=== PATIENT | female | born 1955 | race Caucasian/White ===

== ENCOUNTER 2022-01-11 14:30 | Emergency (ER) | payer MEDICARE, SELFPAY ==
[2022-01-11 15:43] VITALS: BP 125/62; PULSE 62; RESP 19; TEMP 36.6; O2SAT 98; BMI 24.2
--- NOTE | 2022-01-11 17:27 | ED.GENADULT ---
HPI - General Adult General Chief complaint: General Medical Stated complaint: Port needs to be flushed Time Seen by Provider: 01/11/22 16:50 Source: patient Mode of arrival: ambulatory Limitations: no limitations History of Present Illness HPI narrative: Patient lives in [place] came here to see her mother is going to stay here for some time has a port and she gets IV G every 4 weeks as needed comes here as she want site to be flushed and check her platelet levels no other active complaints as such Related Data Allergies Allergy/AdvReac Type Severity Reaction Status Date / Time cephalexin [From KEFLEX] Allergy Unknown UNKNOWN Unverified 06/20/20 19:06 diazepam [From VALIUM] Allergy Unknown UNKNOWN Unverified 06/20/20 19:06 erythromycin base Allergy Unknown ANAPHYLAXIS Unverified 06/20/20 19:06 [ERYTHROMYCIN BASE] meperidine [From DEMEROL] Allergy Unknown UNKNOWN Unverified 06/20/20 19:06 morphine [MORPHINE] Allergy Unknown KIDNEY Unverified 06/20/20 19:06 PROBLEM pantoprazole [From PROTONIX] Allergy Unknown ITCHING Unverified 06/20/20 19:06 paroxetine [From PAXIL] Allergy Unknown ITCHING Unverified 06/20/20 19:06 promethazine [From PHENERGAN] Allergy Unknown ANAPHYLAXIS Unverified 06/20/20 19:06 Review of Systems Review of Systems: Yes all other systems are reviewed and are negative PMFSH Past Medical History Medical History COPD (chronic obstructive pulmonary disease) CVA (cerebral vascular accident) Diabetes type 1, controlled HTN (hypertension) Lupus Myocardial infarct Social History Social History Patient Tobacco Use Status: Never used Tobacco Use of substances other than those prescribed or required for medical reasons: No Advance Directives: No Advance Directives Information Provided: No Patient : No Physical Exam ED Vital Signs: Vital Signs - 24 hr 01/11/22 15:43 01/11/22 18:42 Temperature 98 F 98.0 F Pulse Rate 62 56 Respiratory Rate 19 18 Blood Pressure 125/62 135/70 Pulse Oximetry 98 98 BMI result Body Mass Index 24.2 Appearance: Alert. Oriented X3. No acute distress. ENT: Pharynx normal. Oral Mucosa moist Neck: Normal inspection. Neck supple. CVS: Normal heart rate and rhythm. Pulses normal. Respiratory: No respiratory distress. Equal air entry bilateral, Abdomen: Soft and nontender. Bowel sounds are present, no mass palpable, Skin: Skin warm and dry. Normal skin color. Normal skin turgor. Extremities: No lower extremity edema. No calf tenderness Neuro: Oriented X 3. Medical Decision Making Lab Data Lab results reviewed: Yes I reviewed the patient's lab results. Result diagrams: 01/11/22 18:24 01/11/22 18:24 Labs: Lab Results 01/11/22 01/11/22 Range/Units 18:24 18:24 WBC 5.6 (4.8-10.8) X10*3/uL RBC 4.82 (4.20-5.50) X10*6/uL Hgb 14.1 (12.0-16.0) g/dl Hct 41.8 (37.0-47.0) % MCV 86.7 (80.0-98.0) fL MCH 29.3 (27.0-33.0) pg MCHC 33.7 (31.0-35.0) g/dl RDW 12.4 (11.0-16.0) % Plt Count 46 L (160-400) X10*3/uL MPV 13.4 H (9.4-12.3) fL Immature Gran % (Auto) 0.2 (0.0-0.4) % Neut % (Auto) 46.6 (45-73) % Lymph % (Auto) 43.6 H (20-40) % [place] % (Auto) 7.7 (2-11) % Eos % (Auto) 1.4 (0-4) % Baso % (Auto) 0.5 (0-2) % Lymph # (Auto) 2.5 (1.2-4.9) X10*3/uL [place] # (Auto) 0.4 (0.1-1.2) X10*3/uL Eos # (Auto) 0.1 (0.0-0.4) X10*3/uL Baso # (Auto) 0.0 (0.0-0.2) X10*3/uL Abs Immat Gran (auto) 0.01 (0.00-0.03) X10*3/uL Absolute Neuts (auto) 2.6 (2.0-8.3) x10*3/uL Absolute Nucleated RBC 0.000 (0.0-0.012) X10*3/uL Nucleated RBC % (auto) 0.0 (0.0-0.2) /100WBC Smear Tech's Comments VERIFIED Sodium 140 (135-145) mmol/L Potassium 3.8 (3.3-5.1) mmol/L Chloride 106 (96-108) mmol/L Carbon Dioxide 28 (22-29) mmol/L Anion Gap 10 L (12-20) BUN 11 (9-16) mg/dL Creatinine 0.72 (0.5-1.4) mg/dL Estim Creat Clear Calc 82.5 Estimated GFR > 60 Random Glucose 121 H (60-115) mg/dL Calcium 8.8 (8.4-10.2) mg/dL Total Bilirubin 0.3 (0.0-1.0) mg/dL AST 25 (5-31) U/L ALT 31 (0-31) U/L Alkaline Phosphatase 86 (39-117) U/L Total Protein 6.1 L (6.5-8.0) g/dL Albumin 4.0 (3.5-5.0) g/dL Discharge Plan Discharge Clinical Impression: Thrombocytopenia Patient Disposition: Home, Self-Care Instructions: Thrombocytopenia (ED) Additional Instructions: Care as advised Follow up with PCP
--- NOTE | 2022-01-11 18:29 | PC.NURSE ---
Right chest port accessed, +blood return. labs drawn/sent
[2022-01-11 18:42] VITALS: BP 135/70; PULSE 56; RESP 18; TEMP 36.7; O2SAT 98
[2022-01-11 18:42] LABS: Hemoglobin 14.1 g/dl (12.0-16.0); Monocytes Absolute Auto 0.4 X10*3/uL (0.1-1.2); Red Cell Distribution Width 12.4 % (11.0-16.0); SCAN SMEAR FLAG 1
[2022-01-11 18:44] LABS: Basophils Percent Auto 0.5 % (0-2); Eosinophils Absolute Auto 0.1 X10*3/uL (0.0-0.4); Eosinophils Percent Auto 1.4 % (0-4); Hematocrit 41.8 % (37.0-47.0); Imm Gran Abs Auto 0.01 X10*3/uL (0.00-0.03); Imm Gran Pct Auto 0.2 % (0.0-0.4); Lymphocytes Absolute Auto 2.5 X10*3/uL (1.2-4.9); Lymphocytes Percent Auto 43.6 % (20-40); MANUAL DIFF FLAG SCAN; Mean Corpuscular HGB Conc 33.7 g/dl (31.0-35.0); Mean Corpuscular Hemoglobin 29.3 pg (27.0-33.0); Mean Corpuscular Volume 86.7 fL (80.0-98.0); Mean Platelet Volume 13.4 fL (9.4-12.3); Monocytes Percent Auto 7.7 % (2-11); Neutrophils Absolute Auto 2.6 x10*3/uL (2.0-8.3); Neutrophils Percent Auto 46.6 % (45-73); Red Blood Count 4.82 X10*6/uL (4.20-5.50); White Blood Count 5.6 X10*3/uL (4.8-10.8)
[2022-01-11 18:45] LABS: PLT ABN DIST 1; Platelet Count 46 X10*3/uL (160-400)
[2022-01-11 18:51] LABS: Alanine Aminotransferase 31 U/L (0-31); Alkaline Phosphatase 86 U/L (39-117); Anion Gap 10 (12-20); Aspartate Amino Transferase 25 U/L (5-31); Bilirubin Total 0.3 mg/dL (0.0-1.0); Blood Urea Nitrogen 11 mg/dL (9-16); Calcium 8.8 mg/dL (8.4-10.2); Carbon Dioxide 28 mmol/L (22-29); Chloride 106 mmol/L (96-108); Creatinine Clr Calc Pharmacy 82.5; Estimated Glomerular Filt Rate > 60; Glucose Random 121 mg/dL (60-115); Potassium 3.8 mmol/L (3.3-5.1); Sodium 140 mmol/L (135-145); Total Protein 6.1 g/dL (6.5-8.0)
[2022-01-11 19:09] LABS: SLIDE REVIEW VERIFIED
[2022-01-11 20:31] VITALS: BP 110/77; PULSE 56; RESP 18; TEMP 36.8; O2SAT 94
== END 2022-01-11 21:03 | disposition home or self-care (01) ==
PROVIDERS: Emergency Provider Internal Medicine
DX: D69.49 Other primary thrombocytopenia (principal); Z79.899 Other long term (current) drug therapy
CPT/HCPCS: 36415; 80053; 85025; 96365; 99284

== ENCOUNTER 2022-01-24 20:46 | Inpatient (IN) | payer MEDICARE, SELFPAY ==
--- NOTE | ~2022-01-24 | US_ITS ---
EXAMINATION: US VENOUS WITH DOPPLER UPPER EXTREMITY, LEFT CLINICAL INFORMATION: Left arm swelling COMPARISON: None TECHNIQUE: Ultrasound of the upper extremity is performed using compression sonography and color and pulse Doppler flow with assessment of augmentation of flow. There is also imaging and Doppler assessment of the jugular and subclavian veins. Spectral analysis with color-flow imaging is performed. FINDINGS: Respiratory variation, normal compression, and augmented flow are noted throughout the upper extremity including the axillary, brachial, cubital, and radial and ulnar veins. There is normal flow in the internal jugular and subclavian veins. There is no visible deep or superficial thrombophlebitis. There is a subcentimeter simple appearing fluid collection left axilla, likely a tiny seroma US/US venous duplex UE LT IMPRESSION: No DVT demonstrated in the left upper extremity
--- NOTE | ~2022-01-24 | XR_ITS ---
EXAMINATION: XR CHEST CLINICAL INFORMATION: Shortness of breath. COMPARISON: None. TECHNIQUE: AP view of the chest was obtained. FINDINGS: Coronary stents and right-sided CT compatible chest port terminating at the level of the cavoatrial junction. Otherwise, normal appearance of the cardiomediastinal silhouette. Linear-like opacities laterally in the left lower lobe, otherwise clear lungs. Mild blunting of the left costophrenic angle which could represent subpleural thickening or trace amount of pleural fluid. No pneumothorax. No acute osseous abnormalities. Left axillary surgical clips. XR/XR chest 1V IMPRESSION: Linear-like opacities in the left lower lobe are in favor to represent subsegmental atelectasis or scarring. No dense consolidation, significant pleural effusion or pneumothorax.
[2022-01-24 20:57] VITALS: BP 132/64; PULSE 100; RESP 20; TEMP 37.6; O2SAT 95; BMI 25.0
[2022-01-24 21:15] LABS: Eosinophils Percent Auto 0.1 % (0-4); Monocytes Absolute Auto 0.6 X10*3/uL (0.1-1.2); SCAN SMEAR FLAG 1
[2022-01-24 21:17] LABS: Basophils Percent Auto 0.1 % (0-2); Hemoglobin 14.1 g/dl (12.0-16.0); Imm Gran Abs Auto 0.06 X10*3/uL (0.00-0.03); Imm Gran Pct Auto 0.4 % (0.0-0.4); Lymphocytes Absolute Auto 1.6 X10*3/uL (1.2-4.9); Lymphocytes Percent Auto 11.7 % (20-40); MANUAL DIFF FLAG SCAN; Mean Corpuscular HGB Conc 33.6 g/dl (31.0-35.0); Mean Corpuscular Hemoglobin 29.2 pg (27.0-33.0); Monocytes Percent Auto 4.4 % (2-11); Neutrophils Absolute Auto 11.6 x10*3/uL (2.0-8.3); Neutrophils Percent Auto 83.3 % (45-73); Red Blood Count 4.83 X10*6/uL (4.20-5.50); Red Cell Distribution Width 12.6 % (11.0-16.0); White Blood Count 13.9 X10*3/uL (4.8-10.8)
[2022-01-24 21:20] LABS: PLT ABN DIST 1
--- NOTE | 2022-01-24 21:23 | ED_ITS ---
HPI - Extremity Problem General Chief complaint: Extremity Problem Stated complaint: cellulitis? Time Seen by Provider: 01/24/22 21:17 History of Present Illness HPI Narrative: Patient is a 66-year-old female presented today with having left upper extremity swelling redness pain. Low-grade fever. Patient has a history of breast cancer. History of lupus. History of multiple MIs in the past. History of COPD. Currently on prednisone. Has multiple history of cellulitis in the past. Complaining of redness to the upper extremity on the left. Getting worse. No chest pain or shortness of breath no diaphoresis. Patient from home. No coughing no congestion or upper respiratory symptoms patient immunized for COVID. Their symptoms started today per Related Data Allergies Allergy/AdvReac Type Severity Reaction Status Date / Time cephalexin [From KEFLEX] Allergy Unknown UNKNOWN Unverified 06/20/20 19:06 diazepam [From VALIUM] Allergy Unknown UNKNOWN Unverified 06/20/20 19:06 erythromycin base Allergy Unknown ANAPHYLAXIS Unverified 06/20/20 19:06 [ERYTHROMYCIN BASE] meperidine [From DEMEROL] Allergy Unknown UNKNOWN Unverified 06/20/20 19:06 morphine [MORPHINE] Allergy Unknown KIDNEY Unverified 06/20/20 19:06 PROBLEM pantoprazole [From PROTONIX] Allergy Unknown ITCHING Unverified 06/20/20 19:06 paroxetine [From PAXIL] Allergy Unknown ITCHING Unverified 06/20/20 19:06 promethazine [From PHENERGAN] Allergy Unknown ANAPHYLAXIS Unverified 06/20/20 19:06 Review of Systems Review of Systems: Positive pain to the left upper arm. Positive swelling. [facility] Past Medical History Attestation statement: The following information was validated with the patient. Medical History COPD (chronic obstructive pulmonary disease) CVA (cerebral vascular accident) Diabetes type 1, controlled HTN (hypertension) Lupus Myocardial infarct Social History Social History Patient Tobacco Use Status: Never used Tobacco Advance Directives: No Advance Directives Information Provided: Yes Physical Exam Vital Signs: Vital Signs: Last Vital Signs Temp 99.6 F 01/24/22 20:57 Pulse 100 01/24/22 20:57 Resp 20 01/24/22 20:57 BP 132/64 01/24/22 20:57 Pulse Ox 95 01/24/22 20:57 BMI result Body Mass Index 25.0 Appearance: Alert. Oriented X3. No acute distress. Eyes: Pupils equal, round and reactive to light. ENT: Pharynx normal. Neck: Normal inspection. Neck supple. No lymph nodes noted. No crepitus CVS: Normal heart rate and rhythm. Pulses normal. Normal S1 and S2 Respiratory: No respiratory distress. Breath sounds normal. No Wheezing. No rales Abdomen: Soft and nontender. No rigidity. No distention. good BS x4 Skin: Positive redness in the left upper extremity. Warm to touch. 2+ pitting edema noted. Redness circumferential over the forearm migrating to the arm. Extremities: No lower extremity edema. Neurovascular intact to all extremities. No Lacerations. See above for left arm rash. Sensation intact. Movement over the fingers intact. Capillary refill less than 2 seconds. Neuro: Oriented X 3. No motor deficit. No sensory deficit. Moving all extermities. No slurred speech NIH Stroke Scale Internal: Initial- Upon Arrival MDM - Extremity (Nontraumatic) MDM Narrative Medical decision making narrative: Positive cellulitis to the left upper extremity. Doppler ultrasound of the upper extremity were negative for DVT. Cultures obtained lactate is less than 1. No evidence for severe sepsis. Patient's white count was in the teens. Antibiotics including Levaquin and vancomycin were given. Patient to be admitted for further evaluation and close observation as patient is on prednisone has a history of lupus history of cancer. In guarded condition awaiting missions Lab Data Attestation: I reviewed the patient's lab results. Result diagrams: 01/24/22 21:07 01/24/22 21:07 Labs: Lab Results 01/24/22 01/24/22 01/24/22 Range/Units 21:07 21:07 21:07 WBC 13.9 H (4.8-10.8) X10*3/uL RBC 4.83 (4.20-5.50) X10*6/uL Hgb 14.1 (12.0-16.0) g/dl Hct 42.0 (37.0-47.0) % MCV 87.0 (80.0-98.0) fL MCH 29.2 (27.0-33.0) pg MCHC 33.6 (31.0-35.0) g/dl RDW 12.6 (11.0-16.0) % Plt Count 25 L D (160-400) X10*3/uL MPV Not Reportable Immature Gran % (Auto) 0.4 (0.0-0.4) % Neut % (Auto) 83.3 H (45-73) % Lymph % (Auto) 11.7 L (20-40) % [place] % (Auto) 4.4 (2-11) % Eos % (Auto) 0.1 (0-4) % Baso % (Auto) 0.1 (0-2) % Lymph # (Auto) 1.6 (1.2-4.9) X10*3/uL [place] # (Auto) 0.6 (0.1-1.2) X10*3/uL Eos # (Auto) 0.0 (0.0-0.4) X10*3/uL Baso # (Auto) 0.0 (0.0-0.2) X10*3/uL Abs Immat Gran (auto) 0.06 H (0.00-0.03) X10*3/uL Absolute Neuts (auto) 11.6 H (2.0-8.3) x10*3/uL Absolute Nucleated RBC 0.000 (0.0-0.012) X10*3/uL Nucleated RBC % (auto) 0.0 (0.0-0.2) /100WBC Smear Tech's Comments VERIFIED Sodium 139 (135-145) mmol/L Potassium 3.8 (3.3-5.1) mmol/L Chloride 103 (96-108) mmol/L Carbon Dioxide 30 H (22-29) mmol/L Anion Gap 10 L (12-20) BUN 12 (9-16) mg/dL Creatinine 1.00 (0.5-1.4) mg/dL Estim Creat Clear Calc 57.3 Estimated GFR 56 Random Glucose 161 H (60-115) mg/dL Lactic Acid 0.9 (0.5-2.0) mmol/L Calcium 9.5 D (8.4-10.2) mg/dL Total Bilirubin 0.7 (0.0-1.0) mg/dL AST 28 (5-31) U/L ALT 29 (0-31) U/L Alkaline Phosphatase 83 (39-117) U/L Total Protein 6.6 (6.5-8.0) g/dL Albumin 4.2 (3.5-5.0) g/dL COVID-19 (IVÁN) (Negative) COVID-19 Clin Com 01/24/22 Range/Units 22:05 WBC (4.8-10.8) X10*3/uL RBC (4.20-5.50) X10*6/uL Hgb (12.0-16.0) g/dl Hct (37.0-47.0) % MCV (80.0-98.0) fL MCH (27.0-33.0) pg MCHC (31.0-35.0) g/dl RDW (11.0-16.0) % Plt Count (160-400) X10*3/uL MPV Immature Gran % (Auto) (0.0-0.4) % Neut % (Auto) (45-73) % Lymph % (Auto) (20-40) % [place] % (Auto) (2-11) % Eos % (Auto) (0-4) % Baso % (Auto) (0-2) % Lymph # (Auto) (1.2-4.9) X10*3/uL [place] # (Auto) (0.1-1.2) X10*3/uL Eos # (Auto) (0.0-0.4) X10*3/uL Baso # (Auto) (0.0-0.2) X10*3/uL Abs Immat Gran (auto) (0.00-0.03) X10*3/uL Absolute Neuts (auto) (2.0-8.3) x10*3/uL Absolute Nucleated RBC (0.0-0.012) X10*3/uL Nucleated RBC % (auto) (0.0-0.2) /100WBC Smear Tech's Comments Sodium (135-145) mmol/L Potassium (3.3-5.1) mmol/L Chloride (96-108) mmol/L Carbon Dioxide (22-29) mmol/L Anion Gap (12-20) BUN (9-16) mg/dL Creatinine (0.5-1.4) mg/dL Estim Creat Clear Calc Estimated GFR Random Glucose (60-115) mg/dL Lactic Acid (0.5-2.0) mmol/L Calcium (8.4-10.2) mg/dL Total Bilirubin (0.0-1.0) mg/dL AST (5-31) U/L ALT (0-31) U/L Alkaline Phosphatase (39-117) U/L Total Protein (6.5-8.0) g/dL Albumin (3.5-5.0) g/dL COVID-19 (IVÁN) Negative (Negative) COVID-19 Clin Com See Note Discharge Plan Discharge Clinical Impression: Cellulitis Patient Disposition: Admitted As Inpatient
[2022-01-24 21:25] LABS: Lactic Acid 0.9 mmol/L (0.5-2.0)
[2022-01-24 21:30] LABS: Alanine Aminotransferase 29 U/L (0-31); Albumin Level 4.2 g/dL (3.5-5.0); Alkaline Phosphatase 83 U/L (39-117); Anion Gap 10 (12-20); Aspartate Amino Transferase 28 U/L (5-31); Bilirubin Total 0.7 mg/dL (0.0-1.0); Blood Urea Nitrogen 12 mg/dL (9-16); Calcium 9.5 mg/dL (8.4-10.2); Carbon Dioxide 30 mmol/L (22-29); Chloride 103 mmol/L (96-108); Creatinine Clr Calc Pharmacy 57.3; Estimated Glomerular Filt Rate 56; Glucose Random 161 mg/dL (60-115); Potassium 3.8 mmol/L (3.3-5.1); Sodium 139 mmol/L (135-145); Total Protein 6.6 g/dL (6.5-8.0)
[2022-01-24] MEDS: levoFLOXacin/D5W 500 MG/100 ML PIGGYBACK 100 MG IV (21:42)
[2022-01-24] MEDS: vancomycin HCL 1,000 MG in 0.9 % Sodium Chloride 250 ML 270 MG IV (21:44)
[2022-01-24 22:13] LABS: Platelet Count 25 X10*3/uL (160-400); SLIDE REVIEW VERIFIED
[2022-01-24 22:37] LABS: COVID-19 Test Negative (Negative)
[2022-01-24] MEDS: Acetaminophen 325 MG TABLET 975 MG PO (22:57)
[2022-01-24] MEDS: Enoxaparin Sodium 40 MG/0.4 ML SYRINGE SUBCUT (22:57)
[2022-01-24] MEDS: ondansetron HCL 4 MG/2 ML VIAL IVPUSH (22:58)
[2022-01-24] MEDS: 0.9 % Sodium Chloride 1,000 ML 999 ML IV (23:06)
[2022-01-24] MEDS: Doxycycline Hyclate 100 MG in 0.9 % Sodium Chloride 250 ML 166.67 MG IV (23:29)
--- NOTE | 2022-01-24 23:49 | PM.IMHP ---
History of Present Illness Date of Service: 01/24/22 Chief Complaint: Cellulitis See 6-year-old female with past medical history of COPD, CVA, diabetes, HTN, lupus, breast cancer status post left mastectomy presents to the hospital with complaints of left upper extremity cellulitis. Patient has recurrent cellulitis of the same arm due to lymphadenopathy in the setting of history of mastectomy. Patient reports that about 2 hours prior to presentation she developed significant swelling, redness, and pain in her left arm. Patient reports that she has recurrent episodes like this before that become extensive very fast. Patient reports a fever of 101 at home, has chills, denies any chest pain, no abdominal pain, no nausea or vomiting, no shortness of breath, no cough, no increased sputum production. No diarrhea constipation, no urinary symptoms lower extremity edema. On arrival to the ED patient has a temp of 99.6 degrees, other vitals normal. Labs are significant for WBC of 13.9, otherwise unremarkable Review of Systems Review of Systems: Yes all other systems are reviewed and are negative [facility] Medical History (Updated 01/25/22 @ 06:11 by Reba Dominique MD) COPD (chronic obstructive pulmonary disease) CVA (cerebral vascular accident) Diabetes type 1, controlled History of avascular necrosis of capital femoral epiphysis HTN (hypertension) Lupus Myocardial infarct Family History (Updated 01/25/22 @ 06:10 by Reba Dominique MD) Other No family history of coronary artery disease Surgical History (Updated 01/25/22 @ 06:11 by Reba Dominique MD) H/O bilateral hip replacements H/O left mastectomy H/O: hysterectomy History of appendectomy History of cholecystectomy Social History Household Members: Spouse Housing: Other Housing Other:: mobile home Do you presently have visiting nurse or other home services: No Patient Tobacco Use Status: Never used Tobacco Second Hand Smoke Exposure: No Use of substances other than those prescribed or required for medical reasons: No Currently Displaying Signs/Symptoms of Drug Intoxication Withdrawal: No Any prior treatment program specific to substance use: No Have you been hit, kicked, punched, or otherwise hurt by someone within the past year? If so, by whom?: No Do you feel safe in your current relationship?: Yes Is there a partner from a previous relationship who is making you feel unsafe now?: No Are you made to feel afraid or neglected: No Advance Directives: No Advance Directives Information Provided: Yes Advance Directives on File: Yes Do you have thoughts of harming others: None Recently lost weight without trying: Unsure Eating poorly because of decreased appetite: No Nutrition Risks: Acute nausea or vomiting x1 week Patient : No : No Poor oral hygiene: No Meds Allergies Allergy/AdvReac Type Severity Reaction Status Date / Time cephalexin [From KEFLEX] Allergy Unknown UNKNOWN Unverified 06/20/20 19:06 diazepam [From VALIUM] Allergy Unknown UNKNOWN Unverified 06/20/20 19:06 erythromycin base Allergy Unknown ANAPHYLAXIS Unverified 06/20/20 19:06 [ERYTHROMYCIN BASE] meperidine [From DEMEROL] Allergy Unknown UNKNOWN Unverified 06/20/20 19:06 morphine [MORPHINE] Allergy Unknown KIDNEY Unverified 06/20/20 19:06 PROBLEM pantoprazole [From PROTONIX] Allergy Unknown ITCHING Unverified 06/20/20 19:06 paroxetine [From PAXIL] Allergy Unknown ITCHING Unverified 06/20/20 19:06 promethazine [From PHENERGAN] Allergy Unknown ANAPHYLAXIS Unverified 06/20/20 19:06 Active Medications: Current Medications Acetaminophen (Acetaminophen 325 Mg Tablet) 650 mg PO Q6H PRN PRN Reason: Pain, Mild (Pain Scale 1-3) Docusate Sodium (Docusate Sodium 100 Mg Capsule) 100 mg PO DAILY PRN PRN Reason: Constipation Enoxaparin Sodium (Enoxaparin Sodium 40 Mg/0.4 Ml Syringe) 40 mg SUBCUT Q24H [place] Last Admin: 01/24/22 22:57 Dose: 40 mg Documented by: Diphenhydramine HCl 25 mg/ (Sodium Chloride) 50.5 mls @ 200 mls/hr IV ONCE [place] Doxycycline Hyclate 100 mg/ (Sodium Chloride) 250 mls @ 166.67 mls/hr IV Q12H [place] Last Admin: 01/24/22 23:29 Dose: 166.67 mls/hr Documented by: Ondansetron HCl (Ondansetron Hcl 4 Mg/2 Ml Vial) 4 mg IVPUSH Q8H PRN PRN Reason: Nausea and Vomiting Last Admin: 01/24/22 22:58 Dose: 4 mg Documented by: Pharmacy Consult (Consult Rx Perform Med Rec) 1 each MISCELLANE ONCE PRN PRN Reason: Consult order Sodium Chloride (0.9 % Sodium Chloride Flush 3 Ml Syringe) 3 ml IVFLUSH QSHIFT [place] Physical Exam Vital Signs and Narrative: Vital Signs: Last Vital Signs Temp 99.6 F 01/24/22 20:57 Pulse 100 01/24/22 20:57 Resp 20 01/24/22 20:57 BP 132/64 01/24/22 20:57 Pulse Ox 95 01/24/22 20:57 BMI result Body Mass Index 25.0 Const: General: cooperative and no acute distress Orientation/consciousness: patient oriented x3 Eyes: General: appearance normal, both eyes and all related structures Pupils: Equal, round and reactive pupils present Resp: Effort & Inspection: normal respiratory effort Auscultation: clear to auscultation bilaterally Cardio: Rate: regular rate Rhythm: regular rhythm GI: Palpation (GI): Soft to palpation Auscultation: normal bowel sounds Skin: General skin exam: no rashes or lesions noted Neuro: General: patient oriented x3 Cranial nerves: Yes Equal, round and reactive pupils present Cognition (Neuro): normal cognition Extrem: Other: Significant erythema, warmth, tenderness, as well as edema of the left upper extremity extending from fingers all the way to the shoulder Results Labs CBC and Chem 7: 01/24/22 21:07 01/24/22 21:07 Labs: Laboratory Results - last 24 hr 01/24/22 01/24/22 01/24/22 21:07 21:07 21:07 MCV 87.0 MCH 29.2 MCHC 33.6 RDW 12.6 Plt Count 25 L D MPV Not Reportable Immature Gran % (Auto) 0.4 Neut % (Auto) 83.3 H Lymph % (Auto) 11.7 L [place] % (Auto) 4.4 Eos % (Auto) 0.1 Baso % (Auto) 0.1 Lymph # (Auto) 1.6 [place] # (Auto) 0.6 Eos # (Auto) 0.0 Baso # (Auto) 0.0 Abs Immat Gran (auto) 0.06 H Absolute Neuts (auto) 11.6 H Absolute Nucleated RBC 0.000 Nucleated RBC % (auto) 0.0 Smear Tech's Comments VERIFIED Anion Gap 10 L Estim Creat Clear Calc 57.3 Estimated GFR 56 Random Glucose 161 H Lactic Acid 0.9 Calcium 9.5 D Total Bilirubin 0.7 AST 28 ALT 29 Alkaline Phosphatase 83 Total Protein 6.6 Albumin 4.2 COVID-19 (IVÁN) COVID-19 Clin Com 01/24/22 22:05 MCV MCH MCHC RDW Plt Count MPV Immature Gran % (Auto) Neut % (Auto) Lymph % (Auto) [place] % (Auto) Eos % (Auto) Baso % (Auto) Lymph # (Auto) [place] # (Auto) Eos # (Auto) Baso # (Auto) Abs Immat Gran (auto) Absolute Neuts (auto) Absolute Nucleated RBC Nucleated RBC % (auto) Smear Tech's Comments Anion Gap Estim Creat Clear Calc Estimated GFR Random Glucose Lactic Acid Calcium Total Bilirubin AST ALT Alkaline Phosphatase Total Protein Albumin COVID-19 (IVÁN) Negative COVID-19 Clin Com See Note Imaging Radiologist's Impressions: Impressions Chest X-Ray 01/24/22 21:29 IMPRESSION: Linear-like opacities in the left lower lobe are in favor to represent subsegmental atelectasis or scarring. No dense consolidation, significant pleural effusion or pneumothorax. Venous Duplex 01/24/22 21:47 IMPRESSION: No DVT demonstrated in the left upper extremity Assessment and Plan (1) Cellulitis: Status: Acute Plan # Acute left upper arm cellulitis - acute, extensive - febrile - tx with iv antibiotics - follow cultures # history of COPD - not in exacerbation - continue home inhalers # history of lupus - continue steroids # hypertension - stable - continue antihypertensives DVT prophylaxis: Lovenox Given the significant cellulitis of the left arm and extensive cellulitis patient will need IV antibiotics and therefore will be admitted for further management and monitoring Quality Stroke Does the patient have a stroke diagnosis?: No VTE Prior VTE?: No VTE Risk Level:: Medical - moderate - high VTE Device Contraindication: Treatment Not Indicated VTE Drug Contraindication: N/A - Med Ordered
[2022-01-25] VITALS: BP 133/60; PULSE 80; RESP 18; TEMP 36.1; O2SAT 93
--- NOTE | 2022-01-25 | ECG_ITS ---
Test Reason : cp Blood Pressure : / mmHG Vent. Rate : 066 BPM Atrial Rate : 066 BPM P-R Int : 180 ms QRS Dur : 098 ms QT Int : 412 ms P-R-T Axes : 052 -10 045 degrees QTc Int : 431 ms Normal sinus rhythm Minimal voltage criteria for LVH, may be normal variant ( [place] product ) Borderline ECG No previous ECGs available Referred By: Becka Thomas Electronically Signed By:REAGAN WILLOUGHBY
[2022-01-25 01:55] VITALS: BMI 25.0
[2022-01-25 07:24] LABS: MANUAL DIFF FLAG NO
[2022-01-25 07:33] LABS: Basophils Percent Auto 0.2 % (0-2); Eosinophils Percent Auto 0.4 % (0-4); Hematocrit 40.1 % (37.0-47.0); Hemoglobin 13.3 g/dl (12.0-16.0); Imm Gran Abs Auto 0.02 X10*3/uL (0.00-0.03); Imm Gran Pct Auto 0.2 % (0.0-0.4); Lymphocytes Absolute Auto 2.3 X10*3/uL (1.2-4.9); Mean Corpuscular HGB Conc 33.2 g/dl (31.0-35.0); Mean Corpuscular Hemoglobin 29.4 pg (27.0-33.0); Mean Corpuscular Volume 88.7 fL (80.0-98.0); Monocytes Absolute Auto 0.6 X10*3/uL (0.1-1.2); Monocytes Percent Auto 6.4 % (2-11); Neutrophils Absolute Auto 6.2 x10*3/uL (2.0-8.3); Neutrophils Percent Auto 67.8 % (45-73); Platelet Count 24 X10*3/uL (160-400); Red Blood Count 4.52 X10*6/uL (4.20-5.50); Red Cell Distribution Width 12.7 % (11.0-16.0); White Blood Count 9.1 X10*3/uL (4.8-10.8)
[2022-01-25 08:00] VITALS: BP 140/73; PULSE 72; RESP 20; TEMP 36.8; O2SAT 94
--- NOTE | 2022-01-25 08:09 | PHA.MEDREC ---
Med rec complete, patient has recently filled a prescription for Promacta 50 mg tablets, she states she has not yet started to take this, but has it at home Pharmacy Consult ? Medication Reconciliation Pharmacy has completed the medication reconciliation.
--- NOTE | 2022-01-25 08:34 | MHC.CM.PN ---
CM met with Patient at bedside and addressed IMM with her, providing her with the original and placing a copy on the chart. Patient lives in [place] in a house with her , who she cares for. Patient is here assisting her Mom and is eager to be dc.CM has initiated and will follow for dc planning. Patient has a PORT for IVIG and feels that if LT IVABT is needed, she wants to return to the community (Mom's house) and get VNA. PCP is Dr. Lundberg in [place] @ [phone].Patient's car is here and she plans to drive herself home. Patient has received Moderna X2 and [employer]/Covid vax Booster.
[2022-01-25 08:45] LABS: Anion Gap 10 (12-20); Blood Urea Nitrogen 9 mg/dL (9-16); Carbon Dioxide 27 mmol/L (22-29); Chloride 107 mmol/L (96-108); Creatinine Clr Calc Pharmacy 73.4; Estimated Glomerular Filt Rate > 60; Glucose Random 181 mg/dL (60-115); Potassium 3.8 mmol/L (3.3-5.1); Sodium 140 mmol/L (135-145)
--- NOTE | 2022-01-25 09:18 | PHA.PROG ---
Admission Date/Time: January 24, 2022 22:52 Indication: Weight in k.8 kg Adjusted body weight in K.3 kg [place] body weight in K.9 kg Obesity Dosing Indication % IBW: Serum Creatinine - Last 168 Hours 01/24/22 01/25/22 21:07 06:36 Creatinine 1.00 0.78 Estimated CrCl and GFR - Last 168 Hours 01/24/22 01/25/22 21:07 06:36 Estim Creat Clear Calc 57.3 73.4 Estimated GFR 56 > 60 Vancomycin Loading Dose: 1000 mg x 1 given in ED Current Vancomycin Dosing Regimen: 750 mg q12h Vancomycin Monitoring using AUC goal of 400 - 600 range with trough as surrogate marker: predicted auc of 427, trough 13.7 Date and Time for next Vancomycin Level to be drawn: 01/26/22 @0800 Pharmacist Comments on Vancomycin Plan: Vancomycin dosing will take advantage of [employer] as a clinical decision support tool that uses Bayesian modeling to calculate individual patient's pharmacokinetic parameters and forecast the patient's drug concentration time course with the target goal AUC 24 range of 400 - 600 mg/L/hr.
[2022-01-25 09:45] LABS: Calcium 8.7 mg/dL (8.4-10.2)
[2022-01-25] MEDS: Atorvastatin Calcium 80 MG TABLET PO (10:24)
[2022-01-25] MEDS: amLODIPine Besylate 2.5 MG TABLET PO (10:24)
[2022-01-25] MEDS: Pregabalin 150 MG CAPSULE PO ×2 (10:25→22:16)
[2022-01-25] MEDS: Hydroxychloroquine Sulfate 200 MG TABLET PO (10:25)
[2022-01-25] MEDS: Escitalopram Oxalate 20 MG TABLET PO (10:25)
[2022-01-25] MEDS: Montelukast Sodium 10 MG TABLET PO (10:25)
[2022-01-25] MEDS: Levothyroxine Sodium 50 MCG TABLET PO (10:25)
[2022-01-25] MEDS: Acetaminophen 325 MG TABLET 650 MG PO ×2 (10:25→18:19)
[2022-01-25] MEDS: Docusate Sodium 100 MG CAPSULE 200 MG PO ×2 (10:25→22:31)
[2022-01-25] MEDS: Letrozole 2.5 MG TABLET PO (10:25)
[2022-01-25] MEDS: Isosorbide Mononitrate 60 MG TAB.ER.24H PO (10:25)
[2022-01-25] MEDS: 0.9 % Sodium Chloride Flush 3 ML SYRINGE IVFLUSH ×3 (10:26→23:43)
[2022-01-25] MEDS: Multivitamin TABLET 1 TAB PO (10:26)
[2022-01-25] MEDS: ondansetron HCL 4 MG/2 ML VIAL IVPUSH ×2 (10:26→18:20)
[2022-01-25] MEDS: Metoprolol Tartrate 25 MG TABLET PO ×2 (10:26→22:15)
[2022-01-25] MEDS: vancomycin HCL 750 MG in 0.9 % Sodium Chloride 250 ML 265 MG IV (10:27)
[2022-01-25 11:44] LABS: Glucose, Whole Blood 296 mg/dL (60-115)
[2022-01-25] MEDS: Ergocalciferol (Vitamin D2) 1,250 MCG CAPSULE 1250 MCG PO (12:15)
[2022-01-25] MEDS: Insulin Lispro 100 UNIT/ML 3 ML VIAL SUBCUT ×2 (12:16→22:17)
[2022-01-25 12:38] VITALS: BP 111/70; PULSE 68; RESP 20; TEMP 37.1; O2SAT 96
--- NOTE | 2022-01-25 12:38 | HO.PM.IMPN ---
Subjective Subjective Date of Service: 01/25/22 Interval History: the patient was seen and evaluated this morning Laying in bed, feels Improvement since coming in decreased erythema in her left upper extremity Denies any fever, chills or shortness of breath No reported other overnight events. Systemic review: No fever, chills or weakness No chest pain, palpitation No shortness of breath or coughing No abdominal pain, nausea or vomiting No urinary symptoms Swelling and erythema of left upper extremity Physical Exam Vital Signs: Vital Signs: Last Vital Signs Temp 98.3 F 01/25/22 08:00 Pulse 72 01/25/22 08:00 Resp 20 01/25/22 08:00 BP 140/73 H 01/25/22 08:00 Pulse Ox 94 01/25/22 08:00 BMI result Body Mass Index 25.0 Const: Other: Constitutional : Alert, oriented, not in distress Neck : Normal inspection, Supple Cardiovascular : RRR, no JVP, no lower extremity edema Respiratory : fair bilateral air entry, no crackles, wheezes or rhonchi Gastrointestinal: soft, lax, Normal bowel sounds, Non tender Skin : Warm, Dry, left upper extremity swelling, lymphedema with mild erythema but no drainage Neurological : Alert & oriented x3, No focal deficit , CN 2-12 within normal Objective Data Active Medications Acetaminophen (Acetaminophen 325 Mg Tablet) 650 mg PO Q6H PRN PRN Reason: Pain, Mild (Pain Scale 1-3) Last Admin: 01/25/22 10:25 Dose: 650 mg Documented by: VENKAT Hydrocodone Bitart/Acetaminophen (Hydrocodone Bit/Acetam 10/325 Tablet) 1 tab PO Q6H PRN PRN Reason: Pain (Scale Score 4-6) Last Admin: 01/25/22 12:15 Dose: 1 tab Documented by: VENKAT Amlodipine Besylate (Amlodipine Besylate 2.5 Mg Tablet) 2.5 mg PO DAILY [facility]; Protocol Last Admin: 01/25/22 10:24 Dose: 2.5 mg Documented by: VENKAT Atorvastatin Calcium (Atorvastatin Calcium 80 Mg Tablet) 80 mg PO DAILY [facility] Last Admin: 01/25/22 10:24 Dose: 80 mg Documented by: VENKAT Docusate Sodium (Docusate Sodium 100 Mg Capsule) 100 mg PO DAILY PRN PRN Reason: Constipation Docusate Sodium (Docusate Sodium 100 Mg Capsule) 200 mg PO BID [facility] Last Admin: 01/25/22 10:25 Dose: 200 mg Documented by: VENKAT Ergocalciferol (Ergocalciferol (Vitamin D2) 1,250 Mcg Capsule) 1,250 mcg PO SuWe@0900 [facility] Last Admin: 01/25/22 12:15 Dose: 1,250 mcg Documented by: VENKAT Escitalopram Oxalate (Escitalopram Oxalate 20 Mg Tablet) 20 mg PO DAILY [facility] Last Admin: 01/25/22 10:25 Dose: 20 mg Documented by: VENKAT Furosemide (Furosemide 40 Mg Tablet) 40 mg PO DAILY PRN; Protocol PRN Reason: SWELLING Hydroxychloroquine Sulfate (Hydroxychloroquine Sulfate 200 Mg Tablet) 200 mg PO DAILY [facility] Last Admin: 01/25/22 10:25 Dose: 200 mg Documented by: VENKAT Diphenhydramine HCl 25 mg/ (Sodium Chloride) 50.5 mls @ 200 mls/hr IV ONCE [facility] Vancomycin HCl 750 mg/ Sodium (Chloride) 265 mls @ 265 mls/hr IV Q12H [facility] Last Admin: 01/25/22 10:27 Dose: 265 mls/hr Documented by: VENKAT Levofloxacin (Levaquin) 500 mg in 100 mls @ 100 mls/hr IV Q24H [facility] Insulin Glargine (Insulin Glargine,Hum.Rec.Anlog 100 Unit/Ml 10 Ml Vial) 50 unit SUBCUT BEDTIME [facility] Insulin Human Lispro (Insulin Lispro 100 Unit/Ml 3 Ml Vial) 0 unit SUBCUT QIDACHS [facility]; Protocol Last Admin: 01/25/22 12:16 Dose: 6 unit Documented by: VENKAT Isosorbide Mononitrate (Isosorbide Mononitrate 60 Mg Tab.Er.24h) 60 mg PO DAILY [facility]; Protocol Last Admin: 01/25/22 10:25 Dose: 60 mg Documented by: VENKAT Letrozole (Letrozole 2.5 Mg Tablet) 2.5 mg PO DAILY [facility] Last Admin: 01/25/22 10:25 Dose: 2.5 mg Documented by: VENKAT Levothyroxine Sodium (Levothyroxine Sodium 50 Mcg Tablet) 50 mcg PO DAILY@0630 [facility] Last Admin: 01/25/22 10:25 Dose: 50 mcg Documented by: VENKAT Metoprolol Tartrate (Metoprolol Tartrate 25 Mg Tablet) 25 mg PO BID [facility]; Protocol Last Admin: 01/25/22 10:26 Dose: 25 mg Documented by: VENKAT Montelukast Sodium (Montelukast Sodium 10 Mg Tablet) 10 mg PO DAILY [facility] Last Admin: 01/25/22 10:25 Dose: 10 mg Documented by: VENKAT Multivitamins/Vitamin C (Multivitamin Tablet) 1 tab PO DAILY [facility] Last Admin: 01/25/22 10:26 Dose: 1 tab Documented by: VENKAT Nitroglycerin (Nitroglycerin 0.4 Mg Tab.Subl) 0.4 mg SUBLINGUAL Q5M PRN PRN Reason: Chest Pain Patient Own Medication (Dexilant Dr 60 Mg Capsule) 1 each PO DAILY [facility] Last Admin: 01/25/22 12:15 Dose: 1 each Documented by: VENKAT Patient Own Medication (Elmiron 100 Mg Capsule) 1 each PO TID [facility] Last Admin: 01/25/22 12:15 Dose: 1 each Documented by: VENKAT Ondansetron HCl (Ondansetron Hcl 4 Mg/2 Ml Vial) 4 mg IVPUSH Q8H PRN PRN Reason: Nausea and Vomiting Last Admin: 01/25/22 10:26 Dose: 4 mg Documented by: VENKAT Pharmacy Consult (Consult Rx Perform Med Rec) 1 each MISCELLANE ONCE PRN PRN Reason: Consult order Pharmacy Consult (Consult Rx Vancomycin Dosing) 1 each MISCELLANE DAILY PRN PRN Reason: Consult order Potassium Chloride (Potassium Chloride Er 10 Meq Capsule.Er) 10 meq PO BID [facility] Last Admin: 01/25/22 10:25 Dose: 10 meq Documented by: VENKAT Pregabalin (Pregabalin 150 Mg Capsule) 150 mg PO BID [facility] Last Admin: 01/25/22 10:25 Dose: 150 mg Documented by: VENKAT Ranolazine (Ranolazine 500 Mg Tab.Er.12h) 1,000 mg PO BID [facility] Sodium Chloride (0.9 % Sodium Chloride Flush 3 Ml Syringe) 3 ml IVFLUSH QSHIFT [place] Last Admin: 01/25/22 10:26 Dose: 3 ml Documented by: VENKAT Tizanidine HCl (Tizanidine Hcl 4 Mg Tablet) 4 mg PO TID PRN PRN Reason: MUSCLE SPASMS Trazodone HCl (Trazodone Hcl 50 Mg Tablet) 50 mg PO BEDTIME PRN PRN Reason: Sleep Labs CBC & Chem 7: 01/25/22 06:36 01/25/22 06:36 Labs: Laboratory Results - last 24 hr 01/24/22 01/24/22 01/24/22 21:07 21:07 21:07 MCV 87.0 MCH 29.2 MCHC 33.6 RDW 12.6 Plt Count 25 L D MPV Not Reportable Immature Gran % (Auto) 0.4 Neut % (Auto) 83.3 H Lymph % (Auto) 11.7 L [place] % (Auto) 4.4 Eos % (Auto) 0.1 Baso % (Auto) 0.1 Lymph # (Auto) 1.6 [place] # (Auto) 0.6 Eos # (Auto) 0.0 Baso # (Auto) 0.0 Abs Immat Gran (auto) 0.06 H Absolute Neuts (auto) 11.6 H Absolute Nucleated RBC 0.000 Nucleated RBC % (auto) 0.0 Smear Tech's Comments VERIFIED Anion Gap 10 L Estim Creat Clear Calc 57.3 Estimated GFR 56 POC Glucose Random Glucose 161 H Lactic Acid 0.9 Calcium 9.5 D Total Bilirubin 0.7 AST 28 ALT 29 Alkaline Phosphatase 83 Total Protein 6.6 Albumin 4.2 COVID-19 (IVÁN) COVID-19 Clin Com 01/24/22 01/25/22 01/25/22 22:05 06:36 06:36 MCV 88.7 MCH 29.4 MCHC 33.2 RDW 12.7 Plt Count 24 L MPV Not Reportable Immature Gran % (Auto) 0.2 Neut % (Auto) 67.8 Lymph % (Auto) 25.0 [place] % (Auto) 6.4 Eos % (Auto) 0.4 Baso % (Auto) 0.2 Lymph # (Auto) 2.3 [place] # (Auto) 0.6 Eos # (Auto) 0.0 Baso # (Auto) 0.0 Abs Immat Gran (auto) 0.02 Absolute Neuts (auto) 6.2 Absolute Nucleated RBC 0.000 Nucleated RBC % (auto) 0.0 Smear Tech's Comments Anion Gap 10 L Estim Creat Clear Calc 73.4 Estimated GFR > 60 POC Glucose Random Glucose 181 H Lactic Acid Calcium 8.7 D Total Bilirubin AST ALT Alkaline Phosphatase Total Protein Albumin COVID-19 (IVÁN) Negative COVID-19 Clin Com See Note 01/25/22 11:39 MCV MCH MCHC RDW Plt Count MPV Immature Gran % (Auto) Neut % (Auto) Lymph % (Auto) [place] % (Auto) Eos % (Auto) Baso % (Auto) Lymph # (Auto) [place] # (Auto) Eos # (Auto) Baso # (Auto) Abs Immat Gran (auto) Absolute Neuts (auto) Absolute Nucleated RBC Nucleated RBC % (auto) Smear Tech's Comments Anion Gap Estim Creat Clear Calc Estimated GFR POC Glucose 296 H Random Glucose Lactic Acid Calcium Total Bilirubin AST ALT Alkaline Phosphatase Total Protein Albumin COVID-19 (IVÁN) COVID-19 Clin Com Microbiology Microbiology Results: Microbiology 01/24/22 22:05 Blood Culture - Preliminary Blood - Venous Prelim: GPR Gram Stain only Assessment and Plan (1) Cellulitis: Status: Acute (2) Positive blood culture: Status: Acute Plan a 66 years old lady with PMH of breast cancer post resection and LUE lymphedema presenting with swelling and erythema. # Acute left upper arm cellulitis Not septic Pending cultures Start IV vancomycin and Levaquin # positive blood culture One bottle growing Gram-positive rods covered with IV vancomycin Pending final sensitivity and to repeat current cultures Get ID evaluation # history of COPD not in exacerbation continue home inhalers # history of lupus continue steroids # hypertension continue antihypertensives DVT prophylaxis: Lovenox Patient will need to stay overnight in the hospital for significant cellulitis of the left arm and positive blood culture pending final sensitivity as patient will need IV antibiotics given high chance of decompensation and worsening of the sepsis. Quality Stroke Does the patient have a stroke diagnosis?: No VTE Prior VTE?: No VTE Risk Level:: Medical - moderate - high VTE Device Contraindication: Treatment Not Indicated VTE Drug Contraindication: N/A - Med Ordered
[2022-01-25 15:20] VITALS: BP 105/60; PULSE 70; RESP 18; TEMP 37.1; O2SAT 98
[2022-01-25 15:49] LABS: Glucose, Whole Blood 83 mg/dL (60-115)
[2022-01-25 19:58] VITALS: BP 127/58; PULSE 75; RESP 18; TEMP 36.7; O2SAT 97
[2022-01-25 20:01] LABS: Glucose, Whole Blood 236 mg/dL (60-115)
[2022-01-25] MEDS: Ranolazine 500 MG TAB.ER.12H 1000 MG PO (22:16)
[2022-01-25] MEDS: Insulin Glargine,Hum.rec.anlog 100 UNIT/ML 10 ML VIAL 50 UNIT SUBCUT (22:17)
[2022-01-25] MEDS: levoFLOXacin/D5W 500 MG/100 ML PIGGYBACK 100 MG IV (22:21)
[2022-01-25 23:40] VITALS: BP 120/67; PULSE 72; RESP 16; TEMP 36.9; O2SAT 96
[2022-01-25] MEDS: guaiFENesin DM 100/10/5 ML 5 ML SYRUP PO (23:43)
[2022-01-25] MEDS: vancomycin HCL 750 MG in 0.9 % Sodium Chloride 250 ML 130 MG IV (23:43)
[2022-01-26] MEDS: ondansetron HCL 4 MG/2 ML VIAL IVPUSH ×2 (01:51→20:49)
[2022-01-26] MEDS: Levothyroxine Sodium 50 MCG TABLET PO (05:25)
[2022-01-26 07:22] LABS: Glucose, Whole Blood 233 mg/dL (60-115)
[2022-01-26 07:34] VITALS: BP 124/66; PULSE 56; RESP 20; TEMP 36.8; O2SAT 96
[2022-01-26] MEDS: Insulin Lispro 100 UNIT/ML 3 ML VIAL SUBCUT ×3 (07:59→20:41)
[2022-01-26 08:00] LABS: Red Cell Distribution Width 12.6 % (11.0-16.0)
[2022-01-26] MEDS: polyethylene glycoL 3350 17 GM POWD.PACK PO (08:00)
[2022-01-26] MEDS: Ranolazine 500 MG TAB.ER.12H 1000 MG PO ×2 (08:00→20:40)
[2022-01-26] MEDS: Isosorbide Mononitrate 60 MG TAB.ER.24H PO (08:01)
[2022-01-26] MEDS: Escitalopram Oxalate 20 MG TABLET PO (08:01)
[2022-01-26] MEDS: Montelukast Sodium 10 MG TABLET PO (08:01)
[2022-01-26] MEDS: amLODIPine Besylate 2.5 MG TABLET PO (08:01)
[2022-01-26] MEDS: Atorvastatin Calcium 80 MG TABLET PO (08:01)
[2022-01-26 08:02] LABS: Hemoglobin 13.5 g/dl (12.0-16.0); Mean Corpuscular HGB Conc 32.9 g/dl (31.0-35.0); Mean Corpuscular Hemoglobin 29.2 pg (27.0-33.0); Mean Corpuscular Volume 88.7 fL (80.0-98.0); Red Blood Count 4.62 X10*6/uL (4.20-5.50); White Blood Count 5.7 X10*3/uL (4.8-10.8)
[2022-01-26] MEDS: Multivitamin TABLET 1 TAB PO (08:02)
[2022-01-26] MEDS: Pregabalin 150 MG CAPSULE PO ×2 (08:02→20:41)
[2022-01-26] MEDS: Docusate Sodium 100 MG CAPSULE 200 MG PO ×2 (08:02→20:42)
[2022-01-26] MEDS: Letrozole 2.5 MG TABLET PO (08:02)
[2022-01-26] MEDS: 0.9 % Sodium Chloride Flush 3 ML SYRINGE IVFLUSH ×2 (08:04→15:48)
[2022-01-26 08:05] LABS: Platelet Count 24 X10*3/uL (160-400)
[2022-01-26 08:07] LABS: PLT ABN DIST 1
[2022-01-26 08:13] LABS: Creatinine Clr Calc Pharmacy 77.4; Estimated Glomerular Filt Rate > 60
[2022-01-26 08:37] LABS: Vancomycin Trough 6.2 mcg/mL (10.0-20.0)
--- NOTE | 2022-01-26 08:51 | P.CDIC_ITS ---
CDI Concurrent Query Documentation Clarification: PHYSICIAN'S DOCUMENTATION REQUEST Date of Query: 01/26/22 0851 Patient Name: Asia Cuello Admit Date: 01/24/22 Dear Doctor, A review of the medical record indicates additional documentation may be needed. Please review below and update the documentation accordingly. Risk Factors/Clinical Indicators/Treatments PN: 01/25- Assessment/plan: Acute left upper arm cellulitis, Not septic. IV antibiotics. Blood culture pending, IV antibiotics given high chance of decompensation and worsening Sepsis. Treating, resolved, rule out etc. Sepsis Systemic manifestations of infection, with 2 or more SIRS criteria which include: * Fever > 100.4?F or hypothermia < 96.8?F * Leukocytosis ? WBC > 12,000 or leukopenia, WBC < 4,000, or > 10% bands * Tachycardia- > 90 beats/minute * Tachypnea- RR > 20 breaths/minute or PaCO2 < 32mmHg Source: [employer] Manual 2013 Documentation should include the known or suspected organism, and the underlying infection, such as UTI or pneumonia Severe Sepsis Sepsis with associated acute organ dysfunction, such as renal or respiratory failure Documentation should indicate the association between the sepsis and the organ dysfunction Based on the above information and the recognized standard for sepsis, could you please clarify in the Progress Notes if this diagnoses is still accurate and reflective of the patient's condition to ensure quality of the medical record. * Sepsis is/was present and is a clinical diagnosis based on (please include this additional support in the medical record) * After study (the condition) has been ruled out * Other (please specify) * Unable to determine Use of terms such as suspected, likely, concern for, or probable (associated with a specific diagnosis that is being evaluated, monitored, or treated as if it exists) are acceptable and can be coded in the inpatient setting, when documented at the time of discharge. Thank you, Anamaria Tarango [facility], CDIS Extension: [phone] Please use your independent medical judgment in providing your response. THIS QUERY IS PART OF THE PERMANENT MEDICAL RECORD Provider Response: Other Other Diagnosis: not septic
--- NOTE | 2022-01-26 08:55 | PHA.PROG ---
Admission Date/Time: January 24, 2022 22:52 Indication: Weight in k.8 kg Adjusted body weight in Kg: Delta body weight in Kg: Obesity Dosing Indication % IBW: Serum Creatinine - Last 168 Hours 01/24/22 01/25/22 01/26/22 21:07 06:36 07:50 Creatinine 1.00 0.78 0.74 Estimated CrCl and GFR - Last 168 Hours 01/24/22 01/25/22 01/26/22 21:07 06:36 07:50 Estim Creat Clear Calc 57.3 73.4 77.4 Estimated GFR 56 > 60 > 60 Vancomycin Loading Dose: Current Vancomycin Dosing Regimen: 750 MG Q12H Vancomycin Monitoring using AUC goal of 400 - 600 range with trough as surrogate marker: Date and Time for next Vancomycin Level to be drawn: 01/27 Vancomycin Trough 6.2 mcg/mL (10.0-20.0) L 01/26/22 07:50 Pharmacist Comments on Vancomycin Plan: Patients trough came back low at 6.2, increasing regimen to 1000 mg q12h. The model predicts a AUC of 449 and a trough of 13.8. Next trough will be drawn on 01/27. Vancomycin dosing will take advantage of [employer] as a clinical decision support tool that uses Bayesian modeling to calculate individual patient's pharmacokinetic parameters and forecast the patient's drug concentration time course with the target goal AUC 24 range of 400 - 600 mg/L/hr.
[2022-01-26] MEDS: vancomycin HCL 1,000 MG in 0.9 % Sodium Chloride 250 ML 270 MG IV ×2 (10:37→21:44)
[2022-01-26 11:15] LABS: Glucose, Whole Blood 97 mg/dL (60-115)
--- NOTE | 2022-01-26 11:16 | P.CDIC_ITS ---
CDI Concurrent Query Documentation Clarification: PHYSICIAN'S DOCUMENTATION REQUEST Date of Query: 01/26/22 1116 Patient Name: Asia Cuello Admit Date: 01/24/22 Dear Doctor, A review of the medical record indicates additional documentation may be needed. Please review below and update the documentation accordingly. Clinical Indicators: Risk Factors/Clinical Indicators/Treatments PMH - Diabetes type 1, controlled POC glucose 296 H Lantus, Humalog Please clarify the following regarding Diabetes Mellitus (DM): Type/Etiology: * Type I DM * Type II DM * Other type of DM (please specify) * Unable to determine Specifics: * Hypoglycemia * Hyperglycemia * No complications of DM * Other complication ? please specify * Unable to determine Use of terms such as suspected, likely, concern for, or probable (associated with a specific diagnosis that is being evaluated, monitored, or treated as if it exists) are acceptable and can be coded in the inpatient setting, when documented at the time of discharge. Thank you, Anamaria Tarango [facility], CDIS Extension: [phone] Please use your independent medical judgment in providing your response. THIS QUERY IS PART OF THE PERMANENT MEDICAL RECORD Provider Response: Other Other Diagnosis: Hyperglycemia 2/2 diabetes type 2
--- NOTE | 2022-01-26 11:16 | MHC.CDI.CONC ---
CDI Concurrent Query Documentation Clarification: PHYSICIAN'S DOCUMENTATION REQUEST Date of Query: 01/26/22 1116 Patient Name: Asia Cuello Admit Date: 01/24/22 Dear Doctor, A review of the medical record indicates additional documentation may be needed. Please review below and update the documentation accordingly. Clinical Indicators: Risk Factors/Clinical Indicators/Treatments PMH - Diabetes type 1, controlled POC glucose 296 H Lantus, Humalog Please clarify the following regarding Diabetes Mellitus (DM): Type/Etiology: Type I DM Type II DM Other type of DM (please specify) Unable to determine Specifics: Hypoglycemia Hyperglycemia No complications of DM Other complication ? please specify Unable to determine Use of terms such as suspected, likely, concern for, or probable (associated with a specific diagnosis that is being evaluated, monitored, or treated as if it exists) are acceptable and can be coded in the inpatient setting, when documented at the time of discharge. Thank you, Anamaria Tarango [facility], CDIS Extension: [phone] Please use your independent medical judgment in providing your response. THIS QUERY IS PART OF THE PERMANENT MEDICAL RECORD Provider Response: Other Other Diagnosis: Hyperglycemia 2/2 diabetes type 2
--- NOTE | 2022-01-26 14:02 | W.PM.IDCN ---
History of Present Illness Data of Consult Service Date: 01/26/22 Requesting physician: Becka Thomas Primary Care Provider: Unknown Physician HPI Reason for consult: left arm swelling and redness She presents to ER with left arm swelling and redness for 2-3 days. She is post mastectomy for cancer and has had cellulitis and home IV therapy. She lives in [place] and is here helping her 93 year old mother. Blood culture bacillus species [place] is from 2000 ,chemotherapy. Review of Systems Review of Systems: Yes all other systems are reviewed and are negative PMF Past Medical History Medical History COPD (chronic obstructive pulmonary disease) CVA (cerebral vascular accident) Diabetes type 1, controlled History of avascular necrosis of capital femoral epiphysis HTN (hypertension) Lupus Myocardial infarct Family History Family History Other No family history of coronary artery disease Family history: reviewed and not pertinent Surgical History Surgical History H/O bilateral hip replacements H/O left mastectomy H/O: hysterectomy History of appendectomy History of cholecystectomy Social History Social History Household Members: Spouse Housing: Other Housing Other:: mobile home Do you presently have visiting nurse or other home services: No Patient Tobacco Use Status: Never used Tobacco Second Hand Smoke Exposure: No Use of substances other than those prescribed or required for medical reasons: No Currently Displaying Signs/Symptoms of Drug Intoxication Withdrawal: No Any prior treatment program specific to substance use: No Have you been hit, kicked, punched, or otherwise hurt by someone within the past year? If so, by whom?: No Do you feel safe in your current relationship?: Yes Is there a partner from a previous relationship who is making you feel unsafe now?: No Are you made to feel afraid or neglected: No Advance Directives: Yes Advance Directives Information Provided: Yes Advance Directives on File: Yes Advance Directives Date on File: 01/11/22 Do you have thoughts of harming others: None Recently lost weight without trying: Unsure Eating poorly because of decreased appetite: No Nutrition Risks: Acute nausea or vomiting x1 week Patient : No : No Poor oral hygiene: No service: No Current occupational status: disabled Meds Allergies Allergy/AdvReac Type Severity Reaction Status Date / Time cephalexin [From KEFLEX] Allergy Unknown UNKNOWN Unverified 06/20/20 19:06 diazepam [From VALIUM] Allergy Unknown UNKNOWN Unverified 06/20/20 19:06 erythromycin base Allergy Unknown ANAPHYLAXIS Unverified 06/20/20 19:06 [ERYTHROMYCIN BASE] meperidine [From DEMEROL] Allergy Unknown UNKNOWN Unverified 06/20/20 19:06 morphine [MORPHINE] Allergy Unknown KIDNEY Unverified 06/20/20 19:06 PROBLEM pantoprazole [From PROTONIX] Allergy Unknown ITCHING Unverified 06/20/20 19:06 paroxetine [From PAXIL] Allergy Unknown ITCHING Unverified 06/20/20 19:06 promethazine [From PHENERGAN] Allergy Unknown ANAPHYLAXIS Unverified 06/20/20 19:06 Active Medications: Current Medications Acetaminophen (Acetaminophen 325 Mg Tablet) 650 mg PO Q6H PRN PRN Reason: Pain, Mild (Pain Scale 1-3) Last Admin: 01/25/22 18:19 Dose: 650 mg Documented by: Hydrocodone Bitart/Acetaminophen (Hydrocodone Bit/Acetam 10/325 Tablet) 1 tab PO Q6H PRN PRN Reason: Pain (Scale Score 4-6) Last Admin: 01/26/22 01:49 Dose: 1 tab Documented by: Amlodipine Besylate (Amlodipine Besylate 2.5 Mg Tablet) 2.5 mg PO DAILY COUNT [facility]CLUDES [facility]; Protocol Last Admin: 01/26/22 08:01 Dose: 2.5 mg Documented by: Atorvastatin Calcium (Atorvastatin Calcium 80 Mg Tablet) 80 mg PO DAILY COUNT INCLUDES [facility] Last Admin: 01/26/22 08:01 Dose: 80 mg Documented by: Docusate Sodium (Docusate Sodium 100 Mg Capsule) 100 mg PO DAILY PRN PRN Reason: Constipation Docusate Sodium (Docusate Sodium 100 Mg Capsule) 200 mg PO BID COUNT INCLUDES [facility] Last Admin: 01/26/22 08:02 Dose: 200 mg Documented by: Ergocalciferol (Ergocalciferol (Vitamin D2) 1,250 Mcg Capsule) 1,250 mcg PO SuWe@0900 COUNT [facility]CLUDES [facility] Last Admin: 01/25/22 12:15 Dose: 1,250 mcg Documented by: Escitalopram Oxalate (Escitalopram Oxalate 20 Mg Tablet) 20 mg PO DAILY COUNT [facility]CLUDES [facility] Last Admin: 01/26/22 08:01 Dose: 20 mg Documented by: Furosemide (Furosemide 40 Mg Tablet) 40 mg PO DAILY PRN; Protocol PRN Reason: SWELLING Guaifenesin/Dextromethorphan (Guaifenesin Dm 100/10/5 Ml 5 Ml Syrup) 5 ml PO Q4H PRN PRN Reason: Cough Last Admin: 01/25/22 23:43 Dose: 5 ml Documented by: Hydroxychloroquine Sulfate (Hydroxychloroquine Sulfate 200 Mg Tablet) 200 mg PO DAILY COUNT [facility]CLUDES [facility] Last Admin: 01/25/22 10:25 Dose: 200 mg Documented by: Diphenhydramine HCl 25 mg/ (Sodium Chloride) 50.5 mls @ 200 mls/hr IV ONCE [place] Levofloxacin (Levaquin) 500 mg in 100 mls @ 100 mls/hr IV Q24H COUNT INCLUDES [facility] Last Infusion: 01/25/22 23:29 Dose: Infused Documented by: Vancomycin HCl 1,000 mg/ (Sodium Chloride) 270 mls @ 270 mls/hr IV Q12H COUNT [facility]CLUDES [facility] Last Infusion: 01/26/22 12:55 Dose: Infused Documented by: Insulin Glargine (Insulin Glargine,Hum.Rec.Anlog 100 Unit/Ml 10 Ml Vial) 60 unit SUBCUT BEDTIME COUNT INCLUDES THE [facility] Insulin Human Lispro (Insulin Lispro 100 Unit/Ml 3 Ml Vial) 0 unit SUBCUT QIDACHS COUNT INCLUDES THE [facility]; Protocol Last Admin: 01/26/22 12:51 Dose: Not Given Documented by: Isosorbide Mononitrate (Isosorbide Mononitrate 60 Mg Tab.Er.24h) 60 mg PO DAILY COUNT [facility]CLUDES [facility]; Protocol Last Admin: 01/26/22 08:01 Dose: 60 mg Documented by: Letrozole (Letrozole 2.5 Mg Tablet) 2.5 mg PO DAILY COUNT INCLUDES [facility] Last Admin: 01/26/22 08:02 Dose: 2.5 mg Documented by: Levothyroxine Sodium (Levothyroxine Sodium 50 Mcg Tablet) 50 mcg PO DAILY@0630 COUNT [facility]CLUDES [facility] Last Admin: 01/26/22 05:25 Dose: 50 mcg Documented by: Metoprolol Tartrate (Metoprolol Tartrate 25 Mg Tablet) 25 mg PO BID COUNT [facility]CLUDES [facility]; Protocol Last Admin: 01/26/22 08:05 Dose: Not Given Documented by: Montelukast Sodium (Montelukast Sodium 10 Mg Tablet) 10 mg PO DAILY COUNT [facility]CLUDES [facility] Last Admin: 01/26/22 08:01 Dose: 10 mg Documented by: Multivitamins/Vitamin C (Multivitamin Tablet) 1 tab PO DAILY COUNT [facility]CLUDES [facility] Last Admin: 01/26/22 08:02 Dose: 1 tab Documented by: Nitroglycerin (Nitroglycerin 0.4 Mg Tab.Subl) 0.4 mg SUBLINGUAL Q5M PRN PRN Reason: Chest Pain Patient Own Medication (Dexilant Dr 60 Mg Capsule) 1 each PO DAILY COUNT INCLUDES [facility] Last Admin: 01/26/22 08:03 Dose: 1 each Documented by: Patient Own Medication (Elmiron 100 Mg Capsule) 1 each PO TID COUNT INCLUDES [facility] Last Admin: 01/26/22 08:03 Dose: 1 each Documented by: Patient Own Medication (Promacta 50 Mg Tablet) 1 each PO DAILY COUNT INCLUDES [facility] Last Admin: 01/26/22 08:04 Dose: 1 each Documented by: Ondansetron HCl (Ondansetron Hcl 4 Mg/2 Ml Vial) 4 mg IVPUSH Q8H PRN PRN Reason: Nausea and Vomiting Last Admin: 01/26/22 01:51 Dose: 4 mg Documented by: Pharmacy Consult (Consult Rx Perform Med Rec) 1 each MISCELLANE ONCE PRN PRN Reason: Consult order Pharmacy Consult (Consult Rx Vancomycin Dosing) 1 each MISCELLANE DAILY PRN PRN Reason: Consult order Polyethylene Glycol (Polyethylene Glycol 3350 17 Gm Powd.Pack) 17 gm PO DAILY COUNT INCLUDES [facility] Last Admin: 01/26/22 08:00 Dose: 17 gm Documented by: Potassium Chloride (Potassium Chloride Er 10 Meq Capsule.Er) 10 meq PO BID COUNT INCLUDES [facility] Last Admin: 01/26/22 08:01 Dose: 10 meq Documented by: Pregabalin (Pregabalin 150 Mg Capsule) 150 mg PO BID COUNT INCLUDES [facility] Last Admin: 01/26/22 08:02 Dose: 150 mg Documented by: Ranolazine (Ranolazine 500 Mg Tab.Er.12h) 1,000 mg PO BID COUNT INCLUDES [facility] Last Admin: 01/26/22 08:00 Dose: 1,000 mg Documented by: Sodium Chloride (0.9 % Sodium Chloride Flush 3 Ml Syringe) 3 ml IVFLUSH QSHIFT COUNT INCLUDES THE [facility] Last Admin: 01/26/22 08:04 Dose: 3 ml Documented by: Tizanidine HCl (Tizanidine Hcl 4 Mg Tablet) 4 mg PO TID PRN PRN Reason: MUSCLE SPASMS Trazodone HCl (Trazodone Hcl 50 Mg Tablet) 50 mg PO BEDTIME PRN PRN Reason: Sleep Home Medications Medication Instructions Recorded Confirmed Last Taken Type amlodipine 2.5 mg tablet 2.5 mg PO DAILY 01/25/22 01/25/22 Unknown History atorvastatin 80 mg tablet 80 mg PO DAILY 01/25/22 01/25/22 Unknown History cholecalciferol (vitamin D3) 125 375 mcg PO DAILY 01/25/22 01/25/22 01/24/22 History mcg (5,000 unit) tablet clopidogrel 75 mg tablet 75 mg PO DAILY 01/25/22 01/25/22 Unknown History cyanocobalamin (vitamin B-12) 500 0 mcg PO DAILY 01/25/22 01/25/22 01/24/22 History mcg tablet dexlansoprazole 60 mg 60 mg PO DAILY 01/25/22 01/25/22 01/24/22 History capsule,biphase delayed release (Dexilant) docusate sodium 100 mg capsule 200 mg PO BID 01/25/22 01/25/22 01/24/22 History eltrombopag 50 mg tablet (Promacta) 50 mg PO DAILY 01/25/22 Unknown History escitalopram oxalate 20 mg tablet 20 mg PO DAILY 01/25/22 01/25/22 Unknown History fluticasone fur. 100 mcg-umeclid 1 puff INHALATION DAILY 01/25/22 01/25/22 Unknown History 62.5 mcg-vilant 25 mcg inhalat.powder (Trelegy Ellipta) furosemide 40 mg tablet 40 mg PO DAILY PRN 01/25/22 01/25/22 Unknown History hydrocodone 10 mg-acetaminophen 1 tab PO Q6H PRN 01/25/22 01/25/22 Unknown History 325 mg tablet hydroxychloroquine 200 mg tablet 200 mg PO DAILY 01/25/22 01/25/22 Unknown History insulin detemir U-100 100 unit/mL 60 unit SUBCUT BEDTIME 01/25/22 01/25/22 Unknown History (3 mL) subcutaneous pen (Levemir FlexTouch U-100 Insulin) insulin lispro 100 unit/mL 6 unit SUBCUT TIDWM 01/25/22 01/25/22 Unknown History subcutaneous pen (Humalog KwikPen (U-100) Insulin) isosorbide mononitrate 60 mg 60 mg PO DAILY 01/25/22 01/25/22 01/24/22 History tablet,extended release 24 hr letrozole 2.5 mg tablet 2.5 mg PO DAILY 01/25/22 01/25/22 Unknown History levothyroxine 50 mcg tablet 50 mcg PO DAILY 01/25/22 01/25/22 Unknown History lifitegrast 5 % eye drops in a 1 drp OPHTHALMIC (EYE) BID 01/25/22 01/25/22 Unknown History dropperette (Xiidra) linaclotide 145 mcg capsule 145 mcg PO DAILY 01/25/22 01/25/22 Unknown History (Linzess) jzydyn-tpiqshou-dgadwrr 2 cap PO TIDWM 01/25/22 01/25/22 Unknown History 12,000-38,000-60,000 unit capsule,delayed rel (Creon) magnesium 250 mg tablet 500 mg PO DAILY 01/25/22 01/25/22 01/24/22 History metoprolol tartrate 25 mg tablet 25 mg PO BID 01/25/22 01/25/22 Unknown History montelukast 10 mg tablet 10 mg PO DAILY 01/25/22 01/25/22 Unknown History multivitamin 1 tab PO DAILY 01/25/22 01/25/22 01/24/22 History nitroglycerin 0.4 mg sublingual 0.4 mg SUBLINGUAL Q5M PRN 01/25/22 01/25/22 Unknown History tablet ondansetron 4 mg disintegrating 4 mg PO Q6H PRN 01/25/22 01/25/22 Unknown History tablet pentosan polysulfate sodium 100 mg 100 mg PO TID 01/25/22 01/25/22 Unknown History capsule (Elmiron) potassium chloride 10 mEq 10 meq PO BID 01/25/22 01/25/22 Unknown History tablet,extended release prednisone 10 mg tablet 10 mg PO DAILY 01/25/22 01/25/22 01/24/22 History pregabalin 150 mg capsule 150 mg PO BID 01/25/22 01/25/22 Unknown History ranolazine 1,000 mg 1,000 mg PO BID 01/25/22 01/25/22 Unknown History tablet,extended release,12 hr tizanidine 4 mg capsule 4 mg PO TID PRN 01/25/22 01/25/22 Unknown History trazodone 50 mg tablet 50 mg PO BEDTIME PRN 01/25/22 01/25/22 Unknown History vitamin B complex 1 tab PO DAILY 01/25/22 01/25/22 01/24/22 History Physical Exam Vital Signs: Vital Signs: Last Vital Signs Temp 98.2 F 01/26/22 07:34 Pulse 56 01/26/22 07:34 Resp 20 01/26/22 07:34 BP 124/66 01/26/22 07:34 Pulse Ox 96 01/26/22 07:34 BMI result Body Mass Index 25.0 Const: General: cooperative Eyes: General: appearance normal, both eyes and all related structures Resp: Effort & Inspection: normal respiratory effort Cardio: Rate: regular rate Rhythm: regular rhythm GI: Palpation (GI): Soft to palpation and nontender Skin: General skin exam: no rashes or lesions noted Extrem: Other: resolving LLE erythema Results Labs CBC & Chem 7: 01/26/22 07:50 01/26/22 07:50 Labs: Short CBC 01/26/22 Range/Units 07:50 WBC 5.7 (4.8-10.8) X10*3/uL Hgb 13.5 (12.0-16.0) g/dl Hct 41.0 (37.0-47.0) % Plt Count 24 L (160-400) X10*3/uL BMP 01/26/22 07:50 Creatinine 0.74 Microbiology Microbiology Results: Microbiology 01/25/22 10:29 Blood - Venous Blood Culture - Preliminary No growth after 24 hours. 01/25/22 10:29 Blood - Venous Blood Culture - Preliminary No growth after 24 hours. 01/24/22 22:05 Blood - Venous Blood Culture - Final Bacillus species 01/24/22 21:07 Blood - Venous Blood Culture - Preliminary Prelim: GPC Gram Stain only Assessment and Plan (1) Positive blood culture: Status: Acute The blood culture is likely contaminant. The cellulitis is slow to resolve and patient anxious to leave to take care of family (2) Cellulitis: Status: Acute Plan Would send on Vancomycin for 14 day total Check blood cultures repeat Likely remove line in [place].
--- NOTE | 2022-01-26 14:19 | P.PNIM_ITS ---
Subjective Subjective Date of Service: 01/26/22 Interval History: the patient was seen and evaluated this morning Laying in bed, feels Improvement since coming in decreased erythema in her left upper extremity blood culture growing Gram-positive cocci in 1 bottle No reported other overnight events. Systemic review: No fever, chills or weakness No chest pain, palpitation No shortness of breath or coughing No abdominal pain, nausea or vomiting No urinary symptoms Swelling and erythema of left upper extremity Physical Exam Vital Signs: Vital Signs: Last Vital Signs Temp 98.2 F 01/26/22 07:34 Pulse 56 01/26/22 07:34 Resp 20 01/26/22 07:34 BP 124/66 01/26/22 07:34 Pulse Ox 96 01/26/22 07:34 BMI result Body Mass Index 25.0 Const: Other: Constitutional : Alert, oriented, not in distress Neck : Normal inspection, Supple Cardiovascular : RRR, no JVP, no lower extremity edema Respiratory : fair bilateral air entry, no crackles, wheezes or rhonchi Gastrointestinal: soft, lax, Normal bowel sounds, Non tender Skin : Warm, Dry, left upper extremity swelling, lymphedema with mild erythema but no drainage Neurological : Alert & oriented x3, No focal deficit , CN 2-12 within normal Objective Data Active Medications Acetaminophen (Acetaminophen 325 Mg Tablet) 650 mg PO Q6H PRN PRN Reason: Pain, Mild (Pain Scale 1-3) Last Admin: 01/25/22 18:19 Dose: 650 mg Documented by: VENKAT Hydrocodone Bitart/Acetaminophen (Hydrocodone Bit/Acetam 10/325 Tablet) 1 tab PO Q6H PRN PRN Reason: Pain (Scale Score 4-6) Last Admin: 01/26/22 01:49 Dose: 1 tab Documented by: AMISHA Amlodipine Besylate (Amlodipine Besylate 2.5 Mg Tablet) 2.5 mg PO DAILY [facility]; Protocol Last Admin: 01/26/22 08:01 Dose: 2.5 mg Documented by: LE Atorvastatin Calcium (Atorvastatin Calcium 80 Mg Tablet) 80 mg PO DAILY [facility] Last Admin: 01/26/22 08:01 Dose: 80 mg Documented by: LE Docusate Sodium (Docusate Sodium 100 Mg Capsule) 100 mg PO DAILY PRN PRN Reason: Constipation Docusate Sodium (Docusate Sodium 100 Mg Capsule) 200 mg PO BID [facility] Last Admin: 01/26/22 08:02 Dose: 200 mg Documented by: LE Ergocalciferol (Ergocalciferol (Vitamin D2) 1,250 Mcg Capsule) 1,250 mcg PO SuWe@0900 [facility] Last Admin: 01/25/22 12:15 Dose: 1,250 mcg Documented by: VENKAT Escitalopram Oxalate (Escitalopram Oxalate 20 Mg Tablet) 20 mg PO DAILY [facility] Last Admin: 01/26/22 08:01 Dose: 20 mg Documented by: LE Furosemide (Furosemide 40 Mg Tablet) 40 mg PO DAILY PRN; Protocol PRN Reason: SWELLING Guaifenesin/Dextromethorphan (Guaifenesin Dm 100/10/5 Ml 5 Ml Syrup) 5 ml PO Q4H PRN PRN Reason: Cough Last Admin: 01/25/22 23:43 Dose: 5 ml Documented by: AMISHA Hydroxychloroquine Sulfate (Hydroxychloroquine Sulfate 200 Mg Tablet) 200 mg PO DAILY [facility] Last Admin: 01/25/22 10:25 Dose: 200 mg Documented by: VENKAT Diphenhydramine HCl 25 mg/ (Sodium Chloride) 50.5 mls @ 200 mls/hr IV ONCE [facility] Levofloxacin (Levaquin) 500 mg in 100 mls @ 100 mls/hr IV Q24H [facility] Last Infusion: 01/25/22 23:29 Dose: 0 mls/hr Documented by: SANDEEP Vancomycin HCl 1,000 mg/ (Sodium Chloride) 270 mls @ 270 mls/hr IV Q12H [facility] Last Infusion: 01/26/22 12:55 Dose: 0 mls/hr Documented by: LE Insulin Glargine (Insulin Glargine,Hum.Rec.Anlog 100 Unit/Ml 10 Ml Vial) 60 unit SUBCUT BEDTIME [facility] Insulin Human Lispro (Insulin Lispro 100 Unit/Ml 3 Ml Vial) 0 unit SUBCUT QIDACHS [facility]; Protocol Last Admin: 01/26/22 12:51 Dose: Not Given Documented by: LE Non-Admin Reason: No Insulin Coverage Isosorbide Mononitrate (Isosorbide Mononitrate 60 Mg Tab.Er.24h) 60 mg PO DAILY [facility]; Protocol Last Admin: 01/26/22 08:01 Dose: 60 mg Documented by: LE Letrozole (Letrozole 2.5 Mg Tablet) 2.5 mg PO DAILY [facility] Last Admin: 01/26/22 08:02 Dose: 2.5 mg Documented by: LE Levothyroxine Sodium (Levothyroxine Sodium 50 Mcg Tablet) 50 mcg PO DAILY@0630 [facility] Last Admin: 01/26/22 05:25 Dose: 50 mcg Documented by: AMISHA Metoprolol Tartrate (Metoprolol Tartrate 25 Mg Tablet) 25 mg PO BID [facility]; Protocol Last Admin: 01/26/22 08:05 Dose: Not Given Documented by: LE Non-Admin Reason: Patient Condition Contraindication Montelukast Sodium (Montelukast Sodium 10 Mg Tablet) 10 mg PO DAILY [facility] Last Admin: 01/26/22 08:01 Dose: 10 mg Documented by: LE Multivitamins/Vitamin C (Multivitamin Tablet) 1 tab PO DAILY [facility] Last Admin: 01/26/22 08:02 Dose: 1 tab Documented by: LE Nitroglycerin (Nitroglycerin 0.4 Mg Tab.Subl) 0.4 mg SUBLINGUAL Q5M PRN PRN Reason: Chest Pain Patient Own Medication (Dexilant Dr 60 Mg Capsule) 1 each PO DAILY [facility] Last Admin: 01/26/22 08:03 Dose: 1 each Documented by: LE Patient Own Medication (Elmiron 100 Mg Capsule) 1 each PO TID [facility] Last Admin: 01/26/22 08:03 Dose: 1 each Documented by: LE Patient Own Medication (Promacta 50 Mg Tablet) 1 each PO DAILY [facility] Last Admin: 01/26/22 08:04 Dose: 1 each Documented by: LE Ondansetron HCl (Ondansetron Hcl 4 Mg/2 Ml Vial) 4 mg IVPUSH Q8H PRN PRN Reason: Nausea and Vomiting Last Admin: 01/26/22 01:51 Dose: 4 mg Documented by: AMISHA Pharmacy Consult (Consult Rx Perform Med Rec) 1 each MISCELLANE ONCE PRN PRN Reason: Consult order Pharmacy Consult (Consult Rx Vancomycin Dosing) 1 each MISCELLANE DAILY PRN PRN Reason: Consult order Polyethylene Glycol (Polyethylene Glycol 3350 17 Gm Powd.Pack) 17 gm PO DAILY [facility] Last Admin: 01/26/22 08:00 Dose: 17 gm Documented by: LE Potassium Chloride (Potassium Chloride Er 10 Meq Capsule.Er) 10 meq PO BID [facility] Last Admin: 01/26/22 08:01 Dose: 10 meq Documented by: LE Pregabalin (Pregabalin 150 Mg Capsule) 150 mg PO BID [facility] Last Admin: 01/26/22 08:02 Dose: 150 mg Documented by: LE Ranolazine (Ranolazine 500 Mg Tab.Er.12h) 1,000 mg PO BID [facility] Last Admin: 01/26/22 08:00 Dose: 1,000 mg Documented by: LE Sodium Chloride (0.9 % Sodium Chloride Flush 3 Ml Syringe) 3 ml IVFLUSH QSHIFT [facility] Last Admin: 01/26/22 08:04 Dose: 3 ml Documented by: LE Tizanidine HCl (Tizanidine Hcl 4 Mg Tablet) 4 mg PO TID PRN PRN Reason: MUSCLE SPASMS Trazodone HCl (Trazodone Hcl 50 Mg Tablet) 50 mg PO BEDTIME PRN PRN Reason: Sleep Labs CBC & Chem 7: 01/26/22 07:50 01/26/22 07:50 Labs: Laboratory Results - last 24 hr 01/25/22 01/25/22 01/26/22 15:22 19:56 07:09 MCV MCH MCHC RDW Plt Count MPV Absolute Nucleated RBC Nucleated RBC % (auto) Estim Creat Clear Calc Estimated GFR POC Glucose 83 236 H 233 H Vancomycin Trough 01/26/22 01/26/22 01/26/22 07:50 07:50 07:50 MCV 88.7 MCH 29.2 MCHC 32.9 RDW 12.6 Plt Count 24 L MPV Not Reportable Absolute Nucleated RBC 0.000 Nucleated RBC % (auto) 0.0 Estim Creat Clear Calc 77.4 Estimated GFR > 60 POC Glucose Vancomycin Trough 6.2 L 01/26/22 11:05 MCV MCH MCHC RDW Plt Count MPV Absolute Nucleated RBC Nucleated RBC % (auto) Estim Creat Clear Calc Estimated GFR POC Glucose 97 Vancomycin Trough Microbiology Microbiology Results: Microbiology 01/25/22 10:29 Blood Culture - Preliminary Blood - Venous No growth after 24 hours. 01/25/22 10:29 Blood Culture - Preliminary Blood - Venous No growth after 24 hours. 01/24/22 22:05 Blood Culture - Final Blood - Venous Bacillus species 01/24/22 21:07 Blood Culture - Preliminary Blood - Venous Prelim: GPC Gram Stain only Assessment and Plan (1) Positive blood culture: Status: Acute (2) Cellulitis: Status: Acute Plan a 66 years old lady with PMH of breast cancer post resection and LUE lymphedema presenting with swelling and erythema. # Acute left upper arm cellulitis Not septic Pending cultures continue IV vancomycin and Levaquin # positive blood culture One bottle growing Gram-positive Cocci, could be contaminant covered with IV vancomycin Pending final sensitivity and to repeat current cultures id input appreciated # history of COPD not in exacerbation continue home inhalers # history of lupus continue steroids # hypertension continue antihypertensives DVT prophylaxis: Lovenox Patient will need to stay overnight in the hospital for significant cellulitis of the left arm and positive blood culture pending final sensitivity as patient will need IV antibiotics given high chance of decompensation and worsening to sepsis. Quality Stroke Does the patient have a stroke diagnosis?: No VTE Prior VTE?: No VTE Risk Level:: Medical - moderate - high VTE Device Contraindication: Treatment Not Indicated VTE Drug Contraindication: N/A - Med Ordered
[2022-01-26 14:59] VITALS: BP 109/63; PULSE 77; RESP 17; TEMP 36.2; O2SAT 95
[2022-01-26 15:02] VITALS: BP 109/63; PULSE 80; RESP 17; TEMP 36.2; O2SAT 95
[2022-01-26 15:10] LABS: Glucose, Whole Blood 209 mg/dL (60-115)
[2022-01-26 16:56] LABS: Glucose, Whole Blood 191 mg/dL (60-115)
[2022-01-26 19:00] VITALS: BP 135/77; PULSE 76; RESP 17; TEMP 36.3; O2SAT 96
[2022-01-26 20:14] LABS: Glucose, Whole Blood 212 mg/dL (60-115)
[2022-01-26] MEDS: Metoprolol Tartrate 25 MG TABLET PO (20:41)
[2022-01-26] MEDS: levoFLOXacin/D5W 500 MG/100 ML PIGGYBACK 100 MG IV (20:42)
[2022-01-26] MEDS: Insulin Glargine,Hum.rec.anlog 100 UNIT/ML 10 ML VIAL 60 UNIT SUBCUT (20:42)
[2022-01-26] MEDS: bisacodyL 5 MG TABLET.DR 10 MG PO (20:49)
[2022-01-27] VITALS: BP 141/71; PULSE 68; RESP 20; TEMP 36.9; O2SAT 95
[2022-01-27] MEDS: 0.9 % Sodium Chloride Flush 3 ML SYRINGE IVFLUSH ×2 (00:10→10:02)
[2022-01-27] MEDS: guaiFENesin DM 100/10/5 ML 5 ML SYRUP PO (00:10)
[2022-01-27] MEDS: Levothyroxine Sodium 50 MCG TABLET PO (05:51)
[2022-01-27 06:35] LABS: Anion Gap 10 (12-20); Blood Urea Nitrogen 11 mg/dL (9-16); Calcium 9.2 mg/dL (8.4-10.2); Carbon Dioxide 28 mmol/L (22-29); Chloride 106 mmol/L (96-108); Creatinine Clr Calc Pharmacy 73.4; Estimated Glomerular Filt Rate > 60; Glucose Random 184 mg/dL (60-115); Potassium 4.3 mmol/L (3.3-5.1); Sodium 140 mmol/L (135-145)
[2022-01-27 07:38] LABS: Glucose, Whole Blood 125 mg/dL (60-115)
[2022-01-27 08:00] VITALS: BP 121/66; PULSE 66; RESP 18; TEMP 36; O2SAT 97
[2022-01-27] MEDS: vancomycin HCL 1,000 MG in 0.9 % Sodium Chloride 250 ML 270 MG IV (10:01)
[2022-01-27] MEDS: Docusate Sodium 100 MG CAPSULE 200 MG PO (10:21)
[2022-01-27] MEDS: Montelukast Sodium 10 MG TABLET PO (10:25)
[2022-01-27] MEDS: Multivitamin TABLET 1 TAB PO (10:25)
[2022-01-27] MEDS: Letrozole 2.5 MG TABLET PO (10:25)
[2022-01-27] MEDS: Isosorbide Mononitrate 60 MG TAB.ER.24H PO (10:25)
[2022-01-27] MEDS: Metoprolol Tartrate 25 MG TABLET PO (10:25)
[2022-01-27] MEDS: Escitalopram Oxalate 20 MG TABLET PO (10:25)
[2022-01-27] MEDS: amLODIPine Besylate 2.5 MG TABLET PO (10:26)
[2022-01-27] MEDS: Pregabalin 150 MG CAPSULE PO (10:26)
[2022-01-27] MEDS: Ranolazine 500 MG TAB.ER.12H 1000 MG PO (10:26)
[2022-01-27] MEDS: Atorvastatin Calcium 80 MG TABLET PO (10:26)
[2022-01-27] MEDS: polyethylene glycoL 3350 17 GM POWD.PACK PO (10:29)
[2022-01-27 11:35] LABS: Glucose, Whole Blood 231 mg/dL (60-115)
[2022-01-27] MEDS: Insulin Lispro 100 UNIT/ML 3 ML VIAL SUBCUT (12:20)
--- NOTE | 2022-01-27 12:27 | PM.DS ---
DS: Providers Provider Date of Service: 01/27/22 Date of admission: 01/24/22 22:52 Primary care physician: Laney Lundberg Consults: 01/25/22 09:30 Consult to Infectious Diseases Routine Consulting Provider: Ammy Palacios Reason for consultation: UE cellulitis, GPR bacteremia DS: Diagnosis Discharge Diagnosis (1) Positive blood culture: Status: Acute (2) Cellulitis: Status: Acute DS: Summary Hospital Course Hospital Course: Admission note HPI See 6-year-old female with past medical history of COPD, CVA, diabetes, HTN, lupus, breast cancer status post left mastectomy presents to the hospital with complaints of left upper extremity cellulitis.? Patient has recurrent cellulitis of the same arm due to lymphadenopathy in the setting of history of mastectomy.? Patient reports that about 2 hours prior to presentation she developed significant swelling, redness, and pain in her left arm.? Patient reports that she has recurrent episodes like this before that become extensive very fast.? Patient reports a fever of 101 at home, has chills, denies any chest pain, no abdominal pain, no nausea or vomiting, no shortness of breath, no cough, no increased sputum production.? No diarrhea constipation, no urinary symptoms lower extremity edema.? On arrival to the ED patient has a temp of 99.6 degrees, other vitals normal. Labs are significant for WBC of 13.9, otherwise unremarkable Hospital course The patient was treated with IV antibiotics of vancomycin and Zosyn with good response as the swelling, erythema and pain decreased significantly over the course of hospital stay. Her blood cultures turn positive with 1 set growing bacillus bacteria considered as contaminant and the 2nd said growing Streptococcus viridans which also considered as contaminant as infectious disease specialist evaluated the patient and primary recommended to go home with vancomycin for 2 weeks but then changed to go with oral doxycycline and Levaquin to finish total of 2 weeks of antibiotics. Noted to have chronic thrombocytopenia which she takes Promacta for it. [place] [address] with no evidence of bleeding or drop in hemoglobin. To be followed as outpatient. Continue doxycycline and Levaquin as prescribed to finish total of 2 weeks of antibiotics come back to the emergency for any worsening of the symptoms, fever or increased swelling Hold hydroxychloroquine while on other antibiotics to minimize side effects Time Spent with Patient Time attestation: Total time spent providing and/or coordinating discharge services: Discharge coordination time: Greater than 30 minutes Quality: Safe Use of Opioids Does Pt have an Active Cancer Diagnosis on the Problem List?: No Quality: Stroke Does the patient have a stroke diagnosis?: No Physical Exam Vital Signs: Vital Signs: Last Vital Signs Temp 96.8 F 01/27/22 08:00 Pulse 66 01/27/22 08:00 Resp 18 01/27/22 08:00 BP 121/66 01/27/22 08:00 Pulse Ox 97 01/27/22 08:00 BMI result Body Mass Index 25.0 Const: Other: Constitutional : Alert, oriented, not in distress Neck : Normal inspection, Supple Cardiovascular : RRR, no JVP, no lower extremity edema Respiratory : fair bilateral air entry, no crackles, wheezes or rhonchi Gastrointestinal: soft, lax, Normal bowel sounds, Non tender Skin : Warm, Dry, left upper extremity swelling decreased significantly and erythema resolved Neurological : Alert & oriented x3, No focal deficit , CN 2-12 within normal DS: Data Data Completed and Pending Labs on day of discharge: Laboratory Results - last 24 hr 01/26/22 01/26/22 01/26/22 15:05 16:53 20:09 Sodium Potassium Chloride Carbon Dioxide Anion Gap BUN Creatinine Estim Creat Clear Calc Estimated GFR POC Glucose 209 H 191 H 212 H Random Glucose Calcium 01/27/22 01/27/22 01/27/22 06:10 07:14 11:19 Sodium 140 Potassium 4.3 Chloride 106 Carbon Dioxide 28 Anion Gap 10 L BUN 11 Creatinine 0.78 Estim Creat Clear Calc 73.4 Estimated GFR > 60 POC Glucose 125 H 231 H Random Glucose 184 H Calcium 9.2 Preliminary micro results at discharge 01/24/22 21:07 Blood Culture - Preliminary Blood - Venous Streptococcus viridans group 01/25/22 10:29 Blood Culture - Preliminary Blood - Venous No growth after 24 hours. 01/25/22 10:29 Blood Culture - Preliminary Blood - Venous No growth after 24 hours. Discharge Plan Discharge Patient Disposition: Home, Self-Care Discharge Diagnosis: Cellulitis Referrals: [facility] [Other] - 1 Week Discharge Medications: New levofloxacin 500 mg tablet 500 mg PO Q24H Qty: 11 0RF doxycycline monohydrate 100 mg capsule 100 mg PO BID Qty: 22 0RF Continued atorvastatin 80 mg tablet 80 mg PO DAILY 0RF amlodipine 2.5 mg tablet 2.5 mg PO DAILY 0RF clopidogrel 75 mg tablet 75 mg PO DAILY 0RF levothyroxine 50 mcg tablet 50 mcg PO DAILY 0RF montelukast 10 mg tablet 10 mg PO DAILY 0RF letrozole 2.5 mg tablet 2.5 mg PO DAILY 0RF escitalopram oxalate 20 mg tablet 20 mg PO DAILY 0RF metoprolol tartrate 25 mg tablet 25 mg PO BID 0RF pregabalin 150 mg capsule 150 mg PO BID 0RF Levemir FlexTouch U-100 Insuln 100 unit/mL (3 mL) insulin pen 60 unit subcut BEDTIME 0RF ranolazine 1,000 mg tablet extended release 12 hr 1,000 mg PO BID 0RF Xiidra 5 % dropperette 1 drp ophthalmic (eye) BID 0RF Trelegy Ellipta 100-62.5-25 mcg blister with device 1 puff inhalation DAILY 0RF cyanocobalamin (vitamin B-12) 500 mcg Tablet 0 mcg PO DAILY 0RF vitamin B complex Tablet 1 tab PO DAILY 0RF cholecalciferol (vitamin D3) 125 mcg (5,000 unit) Tablet 375 mcg PO DAILY 0RF multivitamin Tablet 1 tab PO DAILY 0RF docusate sodium 100 mg Capsule 200 mg PO BID 0RF potassium chloride 10 mEq Tablet Extended Release 10 meq PO BID 0RF magnesium 250 mg Tablet 500 mg PO DAILY 0RF furosemide 40 mg Tablet 40 mg PO DAILY PRN (Reason: SWELLING) 0RF Rx Instructions: FOR > 4 POUND WEIGHT GAIN IN 24 HOURS trazodone 50 mg Tablet 50 mg PO BEDTIME PRN (Reason: Sleep) 0RF Creon 12,000-38,000 -60,000 unit Capsule,Delayed Release(Dr/Ec) 2 cap PO TIDWM 0RF Rx Instructions: administer with meals and/or snacks ondansetron 4 mg Tablet,Disintegrating 4 mg PO Q6H PRN (Reason: Nausea) 0RF Linzess 145 mcg Capsule 145 mcg PO DAILY 0RF tizanidine 4 mg Capsule 4 mg PO TID PRN (Reason: MUSCLE SPASMS) 0RF nitroglycerin 0.4 mg Tablet, Sublingual 0.4 mg SUBLINGUAL Q5M PRN (Reason: Chest Pain) 0RF Rx Instructions: do not exceed 3 doses per episode Elmiron 100 mg Capsule 100 mg PO TID 0RF isosorbide mononitrate 60 mg Tablet Extended Release 24 Hr 60 mg PO DAILY 0RF dexlansoprazole [Dexilant] 60 mg Capsule,Biphase Delayed Releas 60 mg PO DAILY 0RF hydrocodone-acetaminophen 10-325 mg Tablet 1 tab PO Q6H PRN (Reason: Pain (Scale Score 4-6)) 0RF prednisone 10 mg Tablet 10 mg PO DAILY 0RF insulin lispro [Humalog KwikPen Insulin] 100 unit/mL Insulin Pen 6 unit SUBCUT TIDWM 0RF Promacta 50 mg Tablet 50 mg PO DAILY 0RF Label Comments: PATIENT HAS NOT YET STARTED [facility] MED Rx Instructions: administer on an empty stomach, at least 1 hour before or 2 hours after food/meal(s) Held hydroxychloroquine 200 mg tablet 200 mg PO DAILY 0RF Hold Instructions: Resume on 02/04/22. Discharge Orders: Discharge Order (Routine); Ordered 01/27/22 Ordered By: Becka Thomas Diet: advance to usual diet Activity on Discharge: As tolerated Stand Alone Forms: Patient Portal Discharge page Care Plan Goals: Read below Health Concerns: Read below Plan of Treatment: Read below Assessment: You were admitted to the hospital for evaluation of pain, erythema and swelling in your left upper extremity treated as cellulitis with IV antibiotic with good response as you were evaluated by infectious disease specialist during the hospital stay. Your blood cultures grew bacteria but turned out to be a contaminant. Continue doxycycline and Levaquin as prescribed to finish total of 2 weeks of antibiotics Please come back to the emergency for any worsening of the symptoms, fever or increased swelling Hold hydroxychloroquine while on other antibiotics to minimize side effects
--- NOTE | 2022-01-27 14:47 | MHC.CM.PN ---
IMM 01/27/22 Female DX Cellulitis. Patient is discharged today home no services. She was set up with Home infusion thru [facility]. The patients bl cultures returned Neg. Patient was sent on PO ABX. Referral was cancelled. Patient has arranged for transportation home.
[2022-01-27] MEDS: Heparin Sodium,Porcine Flush 50 UNITS, 0.9 % Sodium Chloride Flush 5 ML IVFLUSH (15:20)
== END 2022-01-27 15:40 | disposition home or self-care (01) | DRG 603 ==
LOC: HO.ED 22:54 → HO.EDOVER 22:57 → HO.IMC 23:32
PROVIDERS: Admitting Provider Internal Medicine; Emergency Provider Emergency Medicine Emergency Medical Services; PCP Family Medicine; Visit Provider Student in an Organized Health Care Education/Training Program
DX: L03.114 Cellulitis of left upper limb (principal); J44.9 Chronic obstructive pulmonary disease, unspecified; I10 Essential (primary) hypertension; E11.65 Type 2 diabetes mellitus with hyperglycemia; M32.9 Systemic lupus erythematosus, unspecified; C50.912 Malignant neoplasm of unspecified site of left female breast; Z20.822 Contact with and (suspected) exposure to COVID-19; I25.2 Old myocardial infarction; Z86.73 Personal history of transient ischemic attack (TIA), and cerebral infarction without residual deficits; Z90.12 Acquired absence of left breast and nipple; Z88.1 Allergy status to other antibiotic agents; Z88.5 Allergy status to narcotic agent; Z88.8 Allergy status to other drugs, medicaments and biological substances; Z79.4 Long term (current) use of insulin; Z79.02 Long term (current) use of antithrombotics/antiplatelets; Z79.52 Long term (current) use of systemic steroids; Z79.890 Hormone replacement therapy; Z79.899 Other long term (current) drug therapy
CPT/HCPCS: 36415; 71045; 80048; 80053; 80202; 82565; 82947; 83605; 85025; 85027; 87040; 87205; 87635; 93005; 93971; 96361; 96365; 96375; 99285; J1642; J1650; J1956; J2405; J3370

== ENCOUNTER 2023-05-03 14:07 | Emergency (ER) | payer OTHER, SELFPAY ==
--- NOTE | ~2023-05-03 | US_ITS ---
EXAMINATION: US VENOUS WITH DOPPLER UPPER EXTREMITY, LEFT CLINICAL INFORMATION: Swelling, erythema COMPARISON: Ultrasound 01/24/2022 TECHNIQUE: Ultrasound of the upper extremity is performed using compression sonography and color and pulse Doppler flow with assessment of augmentation of flow. There is also imaging and Doppler assessment of the jugular and subclavian veins. Spectral analysis with color-flow imaging is performed. FINDINGS: Respiratory variation, normal compression, and augmented flow are noted throughout the upper extremity including the axillary, brachial, cubital, and radial and ulnar veins. There is normal flow in the internal jugular and subclavian veins. There is no visible deep or superficial thrombophlebitis. If the patient's symptoms progress, a followup ultrasound in 5 -7 days might be of value to exclude proximal propagation from a nonvisualized distal arm vein. US/US venous duplex UE LT IMPRESSION: No DVT demonstrated in the left upper extremity
[2023-05-03 14:49] VITALS: BP 143/89; PULSE 76; RESP 17; TEMP 36.2; O2SAT 96; BMI 24.4
--- NOTE | 2023-05-03 14:52 | ED_ITS ---
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 Reports extensive medical history with multiple episodes of cellulitis, usually starting similarly to this episode. Admits took 2 doses of doxycycline today preoperatively, as well as 10 mg of hydrocodone for pain. Admits to chronic LUE swelling, mildly worse at present. Denies SOB, CP, fever/chills. States has been out of her Promacta x2 weeks due to currently visiting this area from [place] Onset (ago): week(s) Related Data Home Medications Medication Instructions Recorded Confirmed amlodipine 2.5 mg tablet 2.5 mg PO DAILY 01/25/22 01/25/22 atorvastatin 80 mg tablet 80 mg PO DAILY 01/25/22 01/25/22 cholecalciferol (vitamin D3) 125 375 mcg PO DAILY 01/25/22 01/25/22 mcg (5,000 unit) tablet clopidogrel 75 mg tablet 75 mg PO DAILY 01/25/22 01/25/22 cyanocobalamin (vitamin B-12) 500 0 mcg PO DAILY 01/25/22 01/25/22 mcg tablet dexlansoprazole 60 mg 60 mg PO DAILY 01/25/22 01/25/22 capsule,biphase delayed release (Dexilant) docusate sodium 100 mg capsule 200 mg PO BID 01/25/22 01/25/22 eltrombopag 50 mg tablet (Promacta) 50 mg PO DAILY 01/25/22 escitalopram oxalate 20 mg tablet 20 mg PO DAILY 01/25/22 01/25/22 fluticasone fur. 100 mcg-umeclid 1 puff inhalation DAILY 01/25/22 01/25/22 62.5 mcg-vilant 25 mcg inhalat.powder (Trelegy Ellipta) furosemide 40 mg tablet 40 mg PO DAILY PRN SWELLING 01/25/22 01/25/22 hydrocodone 10 mg-acetaminophen 1 tab PO Q6H PRN Pain (Scale Score 01/25/22 01/25/22 325 mg tablet 4-6) hydroxychloroquine 200 mg tablet 200 mg PO DAILY 01/25/22 01/25/22 insulin detemir U-100 100 unit/mL 60 unit subcut BEDTIME 01/25/22 01/25/22 (3 mL) subcutaneous pen (Levemir FlexTouch U-100 Insulin) insulin lispro 100 unit/mL 6 unit subcut TIDWM 01/25/22 01/25/22 subcutaneous pen (Humalog KwikPen (U-100) Insulin) isosorbide mononitrate 60 mg 60 mg PO DAILY 01/25/22 01/25/22 tablet,extended release 24 hr letrozole 2.5 mg tablet 2.5 mg PO DAILY 01/25/22 01/25/22 levothyroxine 50 mcg tablet 50 mcg PO DAILY 01/25/22 01/25/22 lifitegrast 5 % eye drops in a 1 drp ophthalmic (eye) BID 01/25/22 01/25/22 dropperette (Xiidra) linaclotide 145 mcg capsule 145 mcg PO DAILY 01/25/22 01/25/22 (Linzess) [id number] 2 cap PO TIDWM 01/25/22 01/25/22 12,000-38,000-60,000 unit capsule,delayed rel (Creon) magnesium 250 mg tablet 500 mg PO DAILY 01/25/22 01/25/22 metoprolol tartrate 25 mg tablet 25 mg PO BID 01/25/22 01/25/22 montelukast 10 mg tablet 10 mg PO DAILY 01/25/22 01/25/22 multivitamin 1 tab PO DAILY 01/25/22 01/25/22 nitroglycerin 0.4 mg sublingual 0.4 mg sublingual Q5M PRN Chest 01/25/22 01/25/22 tablet Pain ondansetron 4 mg disintegrating 4 mg PO Q6H PRN Nausea 01/25/22 01/25/22 tablet pentosan polysulfate sodium 100 mg 100 mg PO TID 01/25/22 01/25/22 capsule (Elmiron) potassium chloride 10 mEq 10 meq PO BID 01/25/22 01/25/22 tablet,extended release prednisone 10 mg tablet 10 mg PO DAILY 01/25/22 01/25/22 pregabalin 150 mg capsule 150 mg PO BID 01/25/22 01/25/22 ranolazine 1,000 mg 1,000 mg PO BID 01/25/22 01/25/22 tablet,extended release,12 hr tizanidine 4 mg capsule 4 mg PO TID PRN MUSCLE SPASMS 01/25/22 01/25/22 trazodone 50 mg tablet 50 mg PO BEDTIME PRN Sleep 01/25/22 01/25/22 vitamin B complex 1 tab PO DAILY 01/25/22 01/25/22 Previous Rx's Medication Instructions Recorded doxycycline monohydrate 100 mg 100 mg PO BID #22 caps 01/27/22 capsule levofloxacin 500 mg tablet 500 mg PO Q24H #11 tabs 01/27/22 doxycycline hyclate 100 mg tablet 100 mg PO BID 7 days #14 tabs 05/03/23 Allergies Allergy/AdvReac Type Severity Reaction Status Date / Time cephalexin [From KEFLEX] Allergy Unknown UNKNOWN Unverified 06/20/20 19:06 diazepam [From VALIUM] Allergy Unknown UNKNOWN Unverified 06/20/20 19:06 erythromycin base Allergy Unknown ANAPHYLAXIS Unverified 06/20/20 19:06 [ERYTHROMYCIN BASE] meperidine [From DEMEROL] Allergy Unknown UNKNOWN Unverified 06/20/20 19:06 morphine [MORPHINE] Allergy Unknown KIDNEY Unverified 06/20/20 19:06 PROBLEM pantoprazole [From PROTONIX] Allergy Unknown ITCHING Unverified 06/20/20 19:06 paroxetine [From PAXIL] Allergy Unknown ITCHING Unverified 06/20/20 19:06 promethazine [From PHENERGAN] Allergy Unknown ANAPHYLAXIS Unverified 06/20/20 1 9:06 Review of Systems Review of Systems: Constitutional: No Fever, No Chills ENT/Mouth: No Ear Pain, No Nasal Congestion, No sore throat, No Rhinorrhea, No Swallowing Difficulty Cardiovascular: No Chest Pain, No SOB, +LUE edema Respiratory: No Cough, No Sputum Gastrointestinal: No Nausea, No Vomiting, No Diarrhea, No Constipation, No Abdominal pain Genitourinary: No Dysuria, No Urinary Frequency, No Hematuria, No Flank Pain Musculoskeletal: + joint pain, No Myalgias, + Joint Swelling Skin: + Skin Lesions, No rash Neuro: No Weakness, No Numbness, No Paresthesias Yes all other systems are reviewed and are negative Constitutional: Constitutional: Reports as per [facility] Past Medical History Attestation statement: The following information was validated with the patient. Source: old records reviewed Medical History COPD (chronic obstructive pulmonary disease) CVA (cerebral vascular accident) Diabetes type 1, controlled History of avascular necrosis of capital femoral epiphysis HTN (hypertension) Lupus Myocardial infarct Surgical History H/O bilateral hip replacements H/O left mastectomy H/O: hysterectomy History of appendectomy History of cholecystectomy Family History Family History Other No family history of coronary artery disease Social History Social History Household Members: Spouse Housing: Other Housing Other:: mobile home Do you presently have visiting nurse or other home services: No Patient Tobacco Use Status: Never used Tobacco Second Hand Smoke Exposure: No Advance Directives: Yes Advance Directives on File: Yes Advance Directives Date on File: 01/11/22 service: No Current occupational status: disabled Physical Exam ED Vital Signs: Vital Signs - 24 hr 05/03/23 14:49 05/03/23 16:23 05/03/23 16:56 Temperature 97.2 F 97.8 F 97.8 F Pulse Rate 76 76 Respiratory Rate 17 19 Blood Pressure 143/89 H 144/82 H Pulse Oximetry 96 98 Oxygen Delivery Method Room Air Room Air BMI result Body Mass Index 24.4 Const General: cooperative, healthy appearing, no acute distress, alert and awake Orientation/consciousness: patient oriented x3 Limitations: no limitations HENMT Head: Yes normal to inspection and Yes atraumatic Ears: hearing grossly normal bilaterally General nose exam: Normal external nose present Face and sinus: Yes normal facial exam Eyes General: appearance normal, both eyes and all related structures EOM: EOMs intact bilaterally Neck Neck: Yes normal visual inspection and Yes no meningeal signs Resp Effort & Inspection: normal respiratory effort and no respiratory distress Cardio Rate: regular rate Heart sounds: S1 normal heart sound present and S2 normal heart sound present Peripheral pulses: Peripheral pulses 2+ throughout Skin Rashes: no rashes Neuro General: patient oriented x3, tone normal and no meningeal signs Gait exam (Neuro): Normal gait present Extrem Other: Please refer to images above. Left thumb with small wound to PIP with surrounding erythema and tenderness extending to thenar eminence. ROM intact with little discomfort. Neurovascularly intact. Wrist nontender. + noted swelling/edema to LUE (chronic per patient), no lymphangitis/streaking or erythema Course Course Course Narrative: This is an RME: Additional HPI, ROS, PE not included below will be deferred to primary provider. 67-year-old female presents with puncture wound to left thumb, concern for cellulitis, patient states she always gets vanco and Levaquin as antibiotics for cellulitis. She reports pain to left thumb. No discomfort with range of motion of fingers or wrist. Up-to-date on tetanus shot. [place] [facility] [place] venous duplex UE LT IMPRESSION: No DVT demonstrated in the left upper extremity > results discussed with patient. Reports MRSA multiple times in the past, cannot take Keflex due to allergy, will prescribe doxycycline Results discussed with patient including worrisome signs and symptoms and strict return precautions, and when to return to the emergency department. They verbalized understanding and feel safe for discharge at this time. 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 On exam VSS, NAD, nontoxic appearing, please refer to images above. Concern for cellulitis and DVT. Lower suspicion for tenosynovitis, septic joint/arthritis, compartment syndrome, arterial compromise. Plan: Venous duplex ultrasound Please refer to course for remaining clinical decision making, interpretation of labs/imaging results, and discussions with consultants and/or family members. Differential Diagnosis Differential Diagnoses: The differential diagnosis associated with the presentation includes As above Radiology Impression Discussion of test interpretation with radiology: I have reviewed the radiologist's reading. External Record Review External record reviewed: Inpatient record, Office record, Outpatient record, Prior outpatient labs, Prior outpatient radiology, Primary care record and Outside ED record Tests considered The following testing was considered but not selected: As above Prescription Management I considered prescription management with: Pain Medication and Antibiotic Chronic Conditions Patient?s care impacted by: Other (ITP, lupus) Discharge Plan Discharge Clinical Impression: Cellulitis Patient Disposition: Home, Self-Care Instructions: Cellulitis (DC) Additional Instructions: Your ultrasound was negative for blood clot Doxycycline is an antibiotic please take as prescribed Elevate your arm, wear Aaron wrap for compression Take Tylenol and Motrin as needed If symptoms persist or worsen, you develop fever, red streaking up her arm, shortness of breath return to the ED Prescriptions: New doxycycline hyclate 100 mg tablet 100 mg PO BID 7 Days Qty: 14 0RF No Action atorvastatin 80 mg tablet 80 mg PO DAILY amlodipine 2.5 mg tablet 2.5 mg PO DAILY clopidogrel 75 mg tablet 75 mg PO DAILY levothyroxine 50 mcg tablet 50 mcg PO DAILY montelukast 10 mg tablet 10 mg PO DAILY hydroxychloroquine 200 mg tablet 200 mg PO DAILY Hold Instructions: Resume on 02/04/22. letrozole 2.5 mg tablet 2.5 mg PO DAILY escitalopram oxalate 20 mg tablet 20 mg PO DAILY metoprolol tartrate 25 mg tablet 25 mg PO BID pregabalin 150 mg capsule 150 mg PO BID Levemir FlexTouch U100 Insulin 100 unit/mL (3 mL) insulin pen 60 unit subcut BEDTIME ranolazine 1,000 mg tablet extended release 12 hr 1,000 mg PO BID Xiidra 5 % dropperette 1 drp ophthalmic (eye) BID Trelegy Ellipta 100-62.5-25 mcg blister with device 1 puff inhalation DAILY cyanocobalamin (vitamin B-12) 500 mcg Tablet 0 mcg PO DAILY vitamin B complex Tablet 1 tab PO DAILY cholecalciferol (vitamin D3) 125 mcg (5,000 unit) Tablet 375 mcg PO DAILY multivitamin Tablet 1 tab PO DAILY docusate sodium 100 mg Capsule 200 mg PO BID potassium chloride 10 mEq Tablet Extended Release 10 meq PO BID magnesium 250 mg Tablet 500 mg PO DAILY furosemide 40 mg Tablet 40 mg PO DAILY PRN (Reason: SWELLING) Rx Instructions: FOR > 4 POUND WEIGHT GAIN IN 24 HOURS trazodone 50 mg Tablet 50 mg PO BEDTIME PRN (Reason: Sleep) Creon 12,000-38,000 -60,000 unit Capsule,Delayed Release(Dr/Ec) 2 cap PO TIDWM Rx Instructions: administer with meals and/or snacks ondansetron 4 mg Tablet,Disintegrating 4 mg PO Q6H PRN (Reason: Nausea) Linzess 145 mcg Capsule 145 mcg PO DAILY tizanidine 4 mg Capsule 4 mg PO TID PRN (Reason: MUSCLE SPASMS) nitroglycerin 0.4 mg Tablet, Sublingual 0.4 mg SUBLINGUAL Q5M PRN (Reason: Chest Pain) Rx Instructions: do not exceed 3 doses per episode Elmiron 100 mg Capsule 100 mg PO TID isosorbide mononitrate 60 mg Tablet Extended Release 24 Hr 60 mg PO DAILY dexlansoprazole [Dexilant] 60 mg Capsule,Biphase Delayed Releas 60 mg PO DAILY hydrocodone-acetaminophen 10-325 mg Tablet 1 tab PO Q6H PRN (Reason: Pain (Scale Score 4-6)) prednisone 10 mg Tablet 10 mg PO DAILY insulin lispro [Humalog KwikPen Insulin] 100 unit/mL Insulin Pen 6 unit SUBCUT TIDWM Promacta 50 mg Tablet 50 mg PO DAILY Patient Comments: PATIENT HAS NOT YET STARTED [facility] MED Rx Instructions: administer on an empty stomach, at least 1 hour before or 2 hours after food/meal(s) levofloxacin 500 mg tablet 500 mg PO Q24H Qty: 11 0RF doxycycline monohydrate 100 mg capsule 100 mg PO BID Qty: 22 0RF Referrals: Physician,Unknown J [Primary Care Provider] - 5 days Interventions: ED Discharge Assessment Last Done: 05/03/23 18:38 Discharge Date/Time: 05/03/23 18:38
[2023-05-03 16:23] VITALS: TEMP 36.6
[2023-05-03 16:56] VITALS: BP 144/82; PULSE 76; RESP 19; TEMP 36.6; O2SAT 98
== END 2023-05-03 18:38 | disposition home or self-care (01) ==
PROVIDERS: Emergency Provider Emergency Medicine
DX: R60.9 Edema, unspecified (principal); M79.602 Pain in left arm; E10.9 Type 1 diabetes mellitus without complications; I10 Essential (primary) hypertension; Z86.73 Personal history of transient ischemic attack (TIA), and cerebral infarction without residual deficits; Z79.899 Other long term (current) drug therapy; Z79.4 Long term (current) use of insulin
CPT/HCPCS: 93971; 99282; 99284

== ENCOUNTER 2025-06-22 13:22 | Outpatient (AMB) | payer MEDICARE, SELFPAY ==
--- OUTSIDE RECORDS SUMMARY | 2025-06-22 13:23 | XMS_ITS | Encounter Summary ---
Author Organization [facility] Address [address] [place] [address] Care Team Providers Care Offline Editor Name Role Phone Unavailable Primary Care Provider Unavailabl e Encounter Details Date Type Department Care Team (Late st Contact Info) Description 04/13/2025 [facility] [address] [phone] Randall Narvaez MD PhD [address] [phone] Epigastric pain (Primary Dx); Nausea; Melena; Thrombocytopenia, unspecified (HCC); Weight loss; CVD (cardiovascular disease); Other congestive heart failure (HCC); Systemic lupus erythematosus, unspecified SLE type, unspecified organ involvement status (CMS/HCC) (HCC) Social History Tobacco Use Types Packs/Day Years Used Date Smoking Tobacco: Never Assessed Comments Unknown Sex and Gender Information Value Date Recorded Sex Assigned at Female 04/25/2025 5:55 AM EDT Legal Sex Female 5:00 PM EST Gender Identity Female 04/17/2025 10:26 AM EDT Sexual Orientation Not on file documented as of this encounter Plan of Treatment Not on file documented as of this encounter Visit Diagnoses Diagnosis Epigastric pain- Primary Abdominal pain, epigastric Nausea Nausea alone Melena Blood in stool Thrombocytopenia, unspecified (HCC) Thrombocytopenia, unspecified Weight loss Loss of weight CVD (cardiovascular disease) Unspecified cardiovascular disease Other congestive heart failure (HCC) Systemic lupus erythematosus, unspecified SLE type, unspecified organ involvement status (CMS/HCC) (HCC) documented in this encounter
--- OUTSIDE RECORDS SUMMARY | 2025-06-22 13:23 | XMS_ITS ---
Author Name [facility] Organization Unknown Encounters Encounter Type Encounter Reason Primary Diagnosis Location Date Ambulatory [facility] 05/08/2025 Ambulatory [facility] 05/08/2025 Ambulatory [facility] 04/23/2025 Ambulatory [facility] 02/19/2025 Ambulatory [facility] 12/25/2024 Ambulatory [facility] 12/22/2024 Ambulatory [facility] 12/18/2024 Ambulatory [facility] 11/01/2024 Ambulatory [facility] 09/24/2024 Ambulatory [facility] 09/19/2024 Ambulatory [facility] 07/18/2024 Ambulatory [facility] 06/01/2024 Ambulatory [facility] 05[facility]22/2024 Ambulatory [facility] 05/02/2024 Ambulatory [facility] 04/03/2024 Ambulatory [facility] 02/15/2024 Ambulatory [facility] 01/01/2024 Ambulatory [facility] 12/28/2023 Ambulatory [facility] 11/10/2023 Ambulatory [facility] 10/29/2023 Ambulatory [facility] 10/27/2023 Ambulatory [facility] 08/10/2023 Ambulatory [facility] 06[facility]18/2023 Ambulatory [facility] 06/16/2023 Ambulatory [facility] 05[facility]25/2023 Ambulatory [facility] 02/23/2023 Ambulatory [facility] 02[facility]23/2023 Ambulatory [facility] 12/29/2022 Ambulatory [facility] 12/24/2022 Ambulatory [facility] 12/08/2022 Ambulatory [facility] 10/14/2022 Ambulatory [facility] 08[facility]24/2022 Ambulatory [facility] 08/11/2022 Ambulatory [facility] 06/27/2022 Ambulatory [facility] 06[facility]20/2022 Ambulatory [facility] 06/05/2022 Ambulatory [facility] 05/25/2022 Ambulatory [facility] 05/11/2022 Ambulatory [facility] 04/14/2022 Ambulatory [facility] 04/13/2022 Ambulatory [facility] 03/31/2022 Ambulatory [facility] 12[facility]05/2021 Ambulatory [facility] 11/28/2021 Ambulatory [facility] 11[facility]19/2021 Ambulatory [facility] 11/13/2021 Ambulatory [facility] 11/06/2021 Ambulatory [facility] 11/05/2021 Ambulatory [facility] 10/29/2021 Ambulatory [facility] 10/02/2021 Ambulatory [facility] 09/16/2021 Ambulatory [facility] 08/06/2021 Ambulatory [facility] 07/31/2021 Care Team Organization Name Specialty Phone Email Start Date End Da te Lorene Camacho MD, [facility] 024 01/11/2024
--- OUTSIDE RECORDS SUMMARY | 2025-06-22 13:23 | XMS_ITS | Clinical Summary ---
Author Organization [facility] Address [address] [place] [address] Care Team Providers Care Film Maker Name Role Phone Unavailable Primary Care Provider Unavailabl e Allergies Active Allergy Reactions Criticality Noted Date Comments Alprazolam High 04/25/2025 Benzodiazepines Anxiety,Itching,Unkn own,Other,Rash High 03/28/2012 hyperactivity Cephalexin Nausea Only,Unknown High 02/25/2011 Tolerated pip/tazo February 2025 - TM Keflex Doxycycline GI intolerance High 03/28/2012 Erythromycin Anaphylaxis,Swelling High 02/25/2011 Swelling of tongue Iodinated Contrast Media Unknown 04/25/2025 Iodine Itching 04/25/2025 Ketorolac Tromethamine Unknown High 04/25/2025 Meperidine Other Low 04/25/2025 Pantoprazole Itching Low 10/23/2021 Paroxetine Itching,Rash Low 04/25/2025 Promethazine Anaphylaxis High 10/23/2021 Propoxyphene Other,Unknown High 03/02/2002 Tramadol Itching,Rash,Unknown High 03/02/2002 Medications amLODIPine (Norvasc) 2.5 mg tablet Take 2.5 mg by mouth in the morning. 5 Active albuterol (2.5 MG/3ML) 0.083% nebulizer solution Inhale 2.5 mg. Activ e atorvaSTATin (Lipitor) 80 MG tablet Take 1 tablet every day by oral route at bedtime for 90 days. 4 Active B Complex Vitamins (Vitamin B-Complex) tablet Take 1 tablet by mouth in the morning. Active buPROPion XL (Wellbutrin XL) 150 MG 24 hr tablet 1 tab(s) orally Q24H Active calcium carbonate 1500 (600 Ca) MG tablet Take 1,200 mg by mouth in the morning and 1,200 mg in the evening. Take with meals. Active cholecalciferol (Vitamin D-3) 50 MCG (1999 UT) capsule Take 1 capsule every day by oral route. Active Cyanocobalamin [address] 1 tablet every day by sublingual route. Active Farxiga 10 MG Take 1 tablet every day by oral route for 90 days. 5 Active Docusate Sodium (DSS) 100 MG capsule Take 2 capsules twice a day by oral route. Active Promacta 50 MG tablet Take 50 mg by mouth Daily. 4 Active escitalopram (Lexapro) 20 MG tablet Take 20 mg by mouth in the morning. 4 Active faMOTidine (Pepcid) 20 MG tablet Take 20 mg by mouth in the morning and 20 mg before bedtime. 5 Active hydroxychloroqu ine (Plaquenil) 200 MG tablet Take 1 tablet every day by oral route for 90 days. 4 Active HYDROcodone-nadia taminophen ([place]) 10-325 mg tablet 1 tablet every 6 hours as needed for pain for 30 days 4 Active Lantus SoloStar 100 UNIT/ML injection pen inject 75 units at bedtime and adjust depending on sugar level may increase to reach fasting glucose of 150. max daily dose of 90 units 5 Active HumaLOG KwikPen (brand of insulin lispro) 100 UNIT/ML injection pen INJECT 10 UNITS PER SLIDING SCALE WITH MEALS 4 TIMES A DAY Active isosorbide mononitrate ER (Imdur) 60 MG 24 hr tablet Take 60 mg by mouth in the morning. 5 Active letrozole (Femara) 2.5 MG chemo tablet Take 2.5 mg by mouth in the morning. Active levothyroxine (Synthroid, Levoxyl) 50 MCG tablet take one daily 4 Active metoprolol SUCCINATE XL (Toprol-XL) 25 MG 24 hr tablet Take 25 mg by mouth in the morning. 5 Active mirtazapine (Remeron) 15 MG tablet TAKE 0.5 TABLET BY MOUTH ONCE DAILY BEFORE BEDTIME 4 Active montelukast (Singulair) 10 MG tablet Take 10 mg by mouth in the morning. 4 Active omeprazole OTC (PriLOSEC OTC) 20 MG EC tablet daily, at the same time every day. Active ondansetron (Zofran) 8 MG tablet TAKE 1 TABLET BY MOUTH EVERY 8 HOURS NEEDED FOR 7 DAYS, FOR NAUSEA 5 Active pancrelipase, Mww-Ojew-Xtkb, (Creon) 56173-67988 units capsule Take by mouth. 4 Active pentosan polysulfate (Elmiron) 100 MG capsule Take 1 capsule 3 times a day by oral route for 90 days. 4 Active potassium chloride CR (Klor-Con) 10 MEQ ER tablet Take 10 mEq by mouth in the morning and 10 mEq in the evening. Active predniSONE (Deltasone) 10 MG tablet Take 4 tabs by mouth daily for 3 days, then 2 tabs by mouth daily for 3 days, then 1 tab by mouth daily for 3 days 5 Active pregabalin (Lyrica) 150 MG capsule take 1 cap in the morning and 2 caps at bedtime by mouth 4 Active ranolazine (Ranexa) 500 MG 12 hr tablet Active semaglutide (Ozempic, 0.25 or 0.5 MG/DOSE,) 2 MG/1.5ML pen-injector Inject 0.25 mg every week by subcutaneous route for 90 days. 5 Active tiZANidine (Zanaflex) 4 MG tablet TAKE 1 TABLET BY MOUTH EVERY 8 HOURS NEEDED NOT TO EXCEED 3 DOSES IN 24 HOURS 5 Active furosemide (Lasix) 40 MG tablet Take by mouth 1 time. Active clopidogrel (Plavix) 75 MG tablet Take by mouth Daily. Active Active Problems Problem Noted Date Diagnosed Date SHIRAZ (obstructive sleep apnea) 04/25/2025 Gastroesophageal reflux disease 04/25/2025 Diabetes mellitus, type 2 04/25/2025 HTN (hypertension) 04/25/2025 Asthma 04/25/2025 History of psychiatric treatment 04/25/2025 Hypothyroidism 04/25/2025 Encounters Date Type Department Care Team Description 04/25/2025 5:54 AM EDT - 04/25/2025 11:59 PM EDT Hospital Encounter [facility] [address] [place] [address] Randall Narvaez MD PhD Epigastric pain; Nausea; Melena; Thrombocytopenia, unspecified (HCC); Weight loss; CVD (cardiovascular disease); Other congestive heart failure (HCC); Systemic lupus erythematosus, unspecified SLE type, unspecified organ involvement status (CMS/HCC) (HCC) Discharge Disposition: Home or Self Care 04/25/2025 Travel 04/13/2025 [facility] [address] [place], [place] [phone] Randall Narvaez MD PhD Epigastric pain (Primary Dx); Nausea; Melena; Thrombocytopenia, unspecified (HCC); Weight loss; CVD (cardiovascular disease); Other congestive heart failure (HCC); Systemic lupus erythematosus, unspecified SLE type, unspecified organ involvement status (CMS/HCC) (HCC) from Last 3 Months Social History Tobacco Use Types Packs/Day Years Used Date Smoking Tobacco: Never Smokeless Tobacco: Never Tobacco Cessation:Counseling Given: Not Answered Comments No Sex and Gender Information Value Date Recorded Sex Assigned at Female 04/25/2025 5:55 AM EDT Legal Sex Female 5:00 PM EST Gender Identity Female 04/17/2025 10:26 AM EDT Sexual Orientation Not on file Last Filed Vital Signs Vital Sign Reading Time Taken Comments Blood Pressure 150/91 04/25/2025 6:36 AM EDT Pulse 76 04/25/2025 6:36 AM EDT Temperature 36.8 C (98.3 F) 04/25/2025 6:36 AM EDT Respiratory Rate 18 04/25/2025 6:36 AM EDT Oxygen Saturation 98% 04/25/2025 6:36 AM EDT Inhaled Oxygen Concentration - - Weight 74.3 kg (163 lb 12.8 oz) 04/25/2025 6:36 AM EDT Height 175.3 cm (5' 9 ) 04/25/2025 6:36 AM EDT Body Mass Index 24.19 04/25/2025 6:36 AM EDT Plan of Treatment Health Maintenance Due Date Last Done Comments CT Colonography 1957 Colonoscopy 1957 Colorectal Cancer Screening 1957 Diabetes: Hemoglobin A1C 1957 FIT-DNA 1957 FIT 1957 FOBT 1957 TSH Level 1957 Diabetes: Foot Exam 1967 Diabetes: Retinopathy Screening 1967 Hepatitis C Screening 1975 Diabetes: Urine Protein Screening 1976 Hepatitis A Vaccines (1 of 2 - Risk 2-dose series) 1976 Pneumococcal Vaccine: 65+ Years (3 of 3 - PPSV23, PCV20 or PCV21) 08/07/2016 06/12/2016, 07/10/2004 Hepatitis B Vaccines (1 of 3 - Risk 3-dose series) 2017 Bone Density Scan 2022 DTaP/Tdap/Td Vaccines (1 - Tdap) 06/20/2022 06/19/2022 Influenza Vaccine (#1) 2025 , 05/27/2024, 07/07/2022, Additional history exists Zoster Vaccines Completed 09/22/2019, 04/04, 04/22/2019 HIB Vaccines Aged Out No longer eligi ble based on patient's age to complete this topic HPV Vaccines Aged Out No longer eligi ble based on patient's age to complete this topic IPV Vaccines Aged Out No longer eligi ble based on patient's age to complete this topic Meningococcal B Vaccine Aged Out No l onger eligible based on patient's age to complete this topic Meningococcal Vaccine Aged Out No jeremy erick eligible based on patient's age to complete this topic Rotavirus Vaccines Aged Out No longer eligible based on patient's age to complete this topic Procedures Procedure Name Priority Date/Time Associated Diagnosis Comments ENDOSCOPY PROCEDURE NOT PERFORMED Routine 04/25/2025 6:57 AM EDT Epigastric pain Nausea Melena Thrombocytopenia, unspecified (HCC) Weight loss CVD (cardiovascular disease) Other congestive heart failure (HCC) Systemic lupus erythematosus, unspecified SLE type, unspecified organ involvement status (CMS/HCC) (HCC) from Last 3 Months Results * Procedure Not Performed (04/25/2025 6:57 AM EDT) Narrative FABYNECT - 04/25/2025 6:57 AM EDT Table formatting from the original result was not included. This procedure was not performed. Procedure: EGD [GI2] Cancel Information Procedure Not Performed Reason Other Procedure Not Performed Comments Anesthesia cancelled due to recent covid infection Randall Narvaez MD PhD ENDOSCOPY PROCEDURE ORDERABLES F inal Result [employer] from Last 3 Months Insurance Member Subscriber Plan / Payer ( fective 2025-Present) Name:Asia Cuello Relation to Subscriber:Self Name:Asia Cuello Payer ID:[id number] (NAIC) Type:Not on file Address: [address] MED[address] Member Subscriber Plan / Payer ( fective 2025-Present) Name:Asia Cuello Relation to Subscriber:Self Name:Asia Cuello Payer ID:[id number] (NAIC) Type:Not on file Address: [address] MED[address]ID
--- OUTSIDE RECORDS SUMMARY | 2025-06-22 13:23 | XMS_ITS ---
Author Name [facility] Organization Unknown Encounters Encounter Type Encounter Reason Primary Diagnosis Location Date Ambulatory [facility] 05/08/2025 Ambulatory [facility] 05/08/2025 Ambulatory [facility] 04/23/2025 Ambulatory [facility] 02/19/2025 Ambulatory [facility] 12[facility]25/2024 Ambulatory [facility] 12/22/2024 Ambulatory [facility] 12/18/2024 [facility] 11/19/2021 [facility] [...] Date End Da te Lorene Camacho MD, [facility] 024 01/11/2024
--- NOTE | 2025-06-22 13:24 | MHC.OFFWIV ---
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 Intake Note: pt presents with LT arm swelling with pain to arm and LT axilla, painful open wound right hand. h/o sepsis, lupus, Patient Tobacco Use Status: Never used Tobacco Allergies cephalexin (From KEFLEX) Allergy (Unknown, Verified 06/22/25 13:33) UNKNOWN diazepam (From VALIUM) Allergy (Unknown, Verified 06/22/25 13:33) UNKNOWN erythromycin base (ERYTHROMYCIN BASE) Allergy (Unknown, Verified 06/22/25 13:33) ANAPHYLAXIS meperidine (From DEMEROL) Allergy (Unknown, Verified 06/22/25 13:33) UNKNOWN morphine (MORPHINE) Allergy (Unknown, Verified 06/22/25 13:33) KIDNEY PROBLEM pantoprazole (From PROTONIX) Allergy (Unknown, Verified 06/22/25 13:33) ITCHING paroxetine (From PAXIL) Allergy (Unknown, Verified 06/22/25 13:33) ITCHING promethazine (From PHENERGAN) Allergy (Unknown, Verified 06/22/25 13:33) ANAPHYLAXIS Do you need a note to return to daycare/school/sports/work: No HPI HPI Comments History of Present Illness Details This is a 70-year-old female with a past medical history of unilateral breast cancer currently maintained on oral chemotherapy, left upper extremity lymphedema with intermittent cellulitis, insulin-dependent diabetes, coronary artery disease s/p stenting, ITP and lupus presenting for evaluation of swelling and pain in her left upper extremity. Patient states that she was most recently hospitalized for a left arm cellulitis which evolved into sepsis in April 2025. Over the past 2 days patient noted that she developed swelling in her left with pain adjacent to hear axilla. She denies having any fevers but has had chills over the past 24 hours. Patient denies any injury or trauma to her left upper extremity preceding the onset of her symptoms. Patient states that it is common for her to develop a cellulitis in her left upper extremity and she denies any history of acute DVT in her left upper extremity. Of note, patient does report hyperglycemia over the past 1 week, blood glucose in the low 300's. [facility] Medical History COPD (chronic obstructive pulmonary disease) CVA (cerebral vascular accident) Diabetes type 1, controlled History of avascular necrosis of capital femoral epiphysis HTN (hypertension) Lupus Myocardial infarct Surgical History H/O bilateral hip replacements H/O left mastectomy H/O: hysterectomy History of appendectomy History of cholecystectomy Family History Other No family history of coronary artery disease Social History Household Members: Spouse Housing: Other Housing Other:: mobile home Do you presently have visiting nurse or other home services: No Patient Tobacco Use Status: Never used Tobacco Second Hand Smoke Exposure: No Advance Directives Date on File: 01/11/22 service: No Current occupational status: disabled Review of Systems Const All systems reviewed & are unremarkable except as noted in HPI and below Reports chills and Denies fever(s) Eyes Reports no additional complaints ENT Reports no additional complaints Card Reports no additional complaints Resp Reports no additional complaints GI Reports no additional complaints Reports no additional complaints Musc Reports no additional complaints, Denies arthralgias, Denies joint swelling, Denies numbness, Reports radiating pain into limb, Denies tingling and Reports other (swelling LUE) Skin/Breast Reports system reviewed and no additional complaints, except as documented Neuro Reports no additional complaints, Denies numbness and Denies tingling Psych Reports no additional complaints Diaz/Lymph Reports no additional complaints Physical Exam Vital Signs: Last Vital Signs Temp 98.4 F 06/22/25 13:28 Pulse 90 06/22/25 13:28 BP 132/68 06/22/25 13:28 Pulse Ox 97 06/22/25 13:28 Oxygen Delivery Method Room Air 06/22/25 13:28 BMI result Body Mass Index 24.7 Patient is afebrile. Const General: cooperative, healthy appearing, comfortable, no acute distress, well developed, alert, awake and Physically active; No acute distress, ill appearing or lethargic Nutritional Appearance: well nourished Orientation/consciousness: patient oriented x3 and No lethargic Limitations: no limitations Skin Other: There is a 1 cm chronic appearing laceration at the base of the right thumb with minimal surrounding erythema; no erythema noted on the left upper extremity however there is global lies edema of the left upper extremity that is nontender and non pitting. Patient has mild tenderness to palpation of the anterior aspect of the left axilla without any overt lymphadenopathy; no lymphangitis noted in the left upper extremity, radial pulse of LUE intact. Neuro General: patient oriented x3 Extrem Left upper extremity: full ROM (no limitation of ROM left shoulder, left olecranon, left wrist), normal capillary refill, edema and wrist; abnormal to inspection (non.pitting edema) Psych Appearance: grossly normal Mental Status: mental status grossly normal Insight: Good insight present (Psych) Judgement: Good judgement present (Psych) Assessment & Plan Assessment & Plan (1) Laceration of right hand: Comment: This is not an acute laceration and no advanced closure as warranted. Lesion is cleansed and a Band-Aid is placed at the site of laceration. Patient states that she had hit her right hand on a metal edge of her shower two days ago. Code(s): S61.411A - Laceration without foreign body of right hand, initial encounter Qualifiers: Encounter type: initial encounter Foreign body presence: without foreign body Qualified Code(s): S61.411A - Laceration without foreign body of right hand, initial encounter Plan: Keep clean with soap and water daily, bandage as needed. (2) Edema of left upper extremity: Comment: Left upper extremity is supple, nontender and radial pulse is present. Patient's previous medical record is reviewed. Patient will be discharged home with Levaquin for an evolving cellulitis, as she has allergies to erythromycin and Keflex. Code(s): R60.0 - Localized edema Plan: Levaquin 750 mg daily x7 days, follow up for any worsening symptoms. Of note, patient is from [place] and is in town visiting family currently. Coding Level of Care Code Est Pt Level 4 (97683) Diagnoses Laceration of right hand without foreign body, initial encounter S61.411A Encounter type: initial encounter Foreign body presence: without foreign body Edema of left upper extremity R60.0 Time Spent (min) 20
[2025-06-22 13:28] VITALS: BP 132/68; PULSE 90; TEMP 36.9; O2SAT 97; BMI 24.7
== END 2025-06-22 13:56 | disposition home or self-care (01) ==
PROVIDERS: Visit Provider Physician Assistant
DX: S61.411A Laceration without foreign body of right hand, initial encounter (principal); R60.0 Localized edema

== ENCOUNTER → 2025-06-22 13:22 | Outpatient (BNVA) | payer MEDICARE, SELFPAY | PROVIDERS: Visit Provider Physician Assistant | DX: S61.411D Laceration without foreign body of right hand, subsequent encounter (principal); R60.0 Localized edema; R73.9 Hyperglycemia, unspecified; W22.8XXD Striking against or struck by other objects, subsequent encounter | CPT/HCPCS: 99212 ==